=== PATIENT | male | born 1930 | race Caucasian/White ===

== ENCOUNTER 2017-10-13 14:07 | Inpatient (IN) ==
--- NOTE | 2017-10-13 14:37 | Emergency Department Note ---
ED Disposition Clinical Impression: Hypertension, Dementia, Abdominal pain, Hypertensive urgency, Bladder tumor, Inguinal hernia Disposition: Still a Patient Condition on Discharge: Fair Instructions: DI for Acute Abdomen - Critical Care Critical Care Time: No Attestation: On 10/13/17, the high probability of a clinically significant, sudden or life threatening deterioration of the following system(s) required my full and direct attention, intervention and personal management. The time I documented below is in addition to time spent performing reported procedures but includes the following listed in this critical care notation. Medical Decision Making - Josias Inquiry Pt receiving controlled substance: No Josias was queried for this patient: No Vital Signs: 10/13/17 14:11 10/13/17 16:08 10/13/17 16:25 Temperature 97.7 F Temperature Source Oral Pulse Rate [Right Brachial] 87 88 79 Respiratory Rate 18 18 Blood Pressure [Right Arm] 183/102 193/106 186/92 Blood Pressure Mean [Right Arm] 129 135 123 Blood Pressure Source [Right Arm] Automatic Cuff Automatic Cuff Automatic Cuff Blood Pressure Position [Right Arm] Sitting Sitting 02 Sat by Pulse Oximetry 98 99 Oxygen Delivery Method Room Air Room Air - Lab Data Lab Results 10/13/17 14:31: WBC 10.1, RBC 4.92, Hgb 15.0, Hct 47.1, MCV 95.7 H, MCH 30.5, MCHC 31.9, RDW 13.0, Plt Count 192, MPV 7.4, Neut % (Auto) 77.0, Lymph % (Auto) 13.2, [place] % (Auto) 7.0, Eos % (Auto) 2.3, Baso % (Auto) 0.6, Neut # (Auto) 7.8 , Lymph # (Auto) 1.3, [place] # (Auto) 0.7, Eos # (Auto) 0.2, Baso # (Auto) 0.1 10/13/17 14:31: Sodium 140, Potassium 4.3, Chloride 103, Carbon Dioxide 30, Anion Gap 11.3, BUN 18, Creatinine 1.15, Estimated Creat Clear 49, Estimated GFR 60, Est GFR ( Amer) 73, Glucose 111 H, Calcium 9.3, Total Bilirubin 0.5, AST 17, ALT 22, Alkaline Phosphatase 81, Total Protein 7.3, Albumin 3.8, Globulin 3.5 H, Albumin/Globulin Ratio 1.1 03/25/18 14:31: Total Creatine Kinase 84, CK-MB (CK-2) 1.2, CK-MB (CK-2) Rel Index 1.4, Troponin I 0.03 10/13/17 14:31: Amylase 70, Lipase 115 10/13/17 14:50: Lactic Acid 0.7 10/13/17 16:28: Troponin I 0.02 Result diagrams: 10/13/17 14:31 10/13/17 14:31 Orders (Tests/Meds): ED MEDICATIONS Discontinued Medications Generic Name Dose Route Start Last Admin Trade Name Freq PRN Reason Stop Dose Admin Diatrizoate Meglum/Diatrizoate Sod 30 ml 10/13/17 14:33 10/13/17 14:55 Gastrografin 66%-10% 30ml PO 10/13/17 14:34 30 ml ONCE ONE Administration Famotidine 20 mg 10/13/17 14:32 10/13/17 14:56 Pepcid 20mg/2ml Vial IV 10/13/17 14:33 20 mg ONCE ONE Administration Iopamidol 75 ml 10/13/17 16:03 10/13/17 16:04 [id number]; 75ml Vial IV 10/13/17 16:04 75 ml ONCE ONE Administration Labetalol HCl 5 mg 10/13/17 16:15 10/13/17 16:24 Labetalol Hcl 20mg/4ml Syringe IV 10/13/17 16:16 5 mg ONCE ONE Administration Metoprolol Tartrate 5 mg 10/13/17 15:29 10/13/17 15:33 Metoprolol Tartrate 5mg/5ml Vial IV 10/13/17 15:30 5 mg ONCE ONE Administration Morphine Sulfate 1 mg 10/13/17 17:04 10/13/17 17:07 Morphine 2mg/Ml Syringe IV 10/13/17 17:05 1 mg ONCE ONE Administration Morphine Sulfate 1 mg 10/13/17 17:45 10/13/17 17:46 Morphine 2mg/Ml Syringe IV 10/13/17 17:46 1 mg ONCE ONE Administration Sodium Chloride 10 ml 10/13/17 16:03 10/13/17 16:05 Rad-Saline Flush 10ml Syringe IV 10/13/17 16:04 10 ml ONCE ONE Administration ORDERS Category Date Time Status CT abdomen pelvis w con Stat Cat Scan 10/13/17 14:32 Taken XR chest AP Stat Exams 10/13/17 14:30 Taken - CT Data CT Scan: Abdomen, Pelvis Time Received: 18:[address] Reviewed: Yes: I have viewed the radiologist's interpretation Preliminary Findings: Abnormal Findings Narrative: Please see report. - ECG Data Tracing #1 Sinus rhythm 88/min first-degree AV block right bundle branch block left anterior fascicular block, LVH changes unchanged from June 2017 EKG. ECG initial impression date: 10/13/17 ECG initial impression time: 14:39 Medical Decision Narrative: His blood pressure continue to be elevated despite of using Lopressor and labetalol IV. His epigastric pain did not respond to Pepcid GI cocktail or morphine. I called Dr. Hernandez was carbon lamp cleaner for Dr. Linn and discussed the CT results with him for possible gallbladder disease, in addition to his urinary bladder abnormality. Dr. Hernandez agreed to admit him to start him on blood pressure medications pain control and obtain a ultrasound of the abdomen in the morning. The patient and his family were agreeable for admission. Abdominal Pain HPI - General Chief Complaint: Abdominal Pain Stated Complaint: stomach pain Time Seen by Provider: 10/13/17 14:20 Mode of Arrival: Ambulatory Limitations: No Limitations Description of Symptoms (Recalled from ER Triage Doc. by RN): pt states has had mid upper abd pain since the overnight; pt states he tried to eat a bowl of cereal, drank an julián 8 ; attempting to relieve discomfort. - History of Present Illness HPI narrative: 87 years old white male with no significant past medical history except for dementia, he had prior history of's hernia and prostate surgery. None recently. Today at 3 AM, he developed sudden onset of mild upper abdominal pain without nausea or vomiting. No hematemesis no coffee-ground emesis no bleeding per rectum no melanotic stool. He has no dysuria no hematuria. No weakness no dizziness no loss of consciousness. no Diaphoresis. The pain the pain remained the same and he decided to come to the ED for evaluation. After I finished the history and examination I asked him how does he rated his pain he said it is gone now. MD complaint: abdominal pain Onset (ago): hour(s) (11 hours prior to arrival to the ED.) Severity: mild Quality: other (he call it sorness. ) Radiation: none Migration to: no migration Relieving factors: nothing Associated symptoms: denies other symptoms - Related Data Allergies Allergy/AdvReac Type Severity Reaction Status Date / Time No Known Allergies Allergy Unverified 07/09/17 15:06 [facility] History I have reviewed the patient's past medical history: Yes (Hx was obtained from him and his granddaughter.) - Social History Educational Level: Completed High School Smoking Status: Unknown if ever smoked Alcohol Intake: never - Psychiatric History Expresses thoughts of harming self/others: None Suicide Plan Description: No Plan ROS Obtained: Yes All systems reviewed & no additional complaints Physical Exam - General General appearance: alert, in no apparent distress - Head Head exam: atraumatic, normocephalic, normal inspection, other (he wears a wig. ) - Eye Eye exam: Present: normal appearance, PERRL, EOMI. Absent: scleral icterus - ENT ENT exam: Present: normal exam, normal oropharynx, mucous membranes moist, TM's normal bilaterally, normal external ear exam, other (he is hard hearing. ) - Neck Neck exam: Present: normal inspection, full ROM, trachea midline. Absent: meningismus, lymphadenopathy - Chest Chest inspection: Present: normal inspection, symmetric chest wall rise. Absent : tenderness - Respiratory Respiratory exam: Present: normal lung sounds bilaterally. Absent: respiratory distress - Cardiovascular Cardiovascular exam: Present: regular rate, normal rhythm. Absent: JVD - Abdominal Exam Abdominal exam: Present: soft, normal bowel sounds, other (Minimal epigastric tenderness with no rebound or cross tenderness. ). Absent: distention, tenderness, guarding, rebound, rigidity, psoas sign, White's sign, tenderness at McBurney's Point Comment: No pulsating masses equal bilateral femoral pulse. - exam: Present: normal inspection, normal testicular lie, circumcised. Absent : testicular tenderness, urethral discharge - Extremities Exam Extremities exam: Present: normal inspection, full ROM, normal capillary refill. Absent: calf tenderness - Back Exam Back exam: Present: normal inspection. Absent: tenderness - Neurological Exam Neurological exam: Present: alert, oriented X3, CN II-XII intact, motor sensory deficit, reflexes normal - Psychiatric Psychiatric exam: Present: normal affect, normal mood - Skin Skin exam: Present: warm, dry, intact, normal color - Lymphatic Lymphatic Findings: no adenopathy
[2017-10-13 14:40] LABS: Basophils # 0.1 K/mm3 (0-0.2); Basophils % 0.6 % (0.1-2.0); Eosinophils # 0.2 K/mm3 (0.0-0.4); Eosinophils % 2.3 % (0.1-12.0); Hematocrit 47.1 % (42.0-52.0); Lymphocytes # 1.3 K/mm3 (0.7-4.5); Lymphocytes % 13.2 K/mm3 (10-50); Mean Corpuscular HGB Conc 31.9 g/dL (31.8-35.4); Mean Corpuscular Hemoglobin 30.5 pg (27.0-31.2); Mean Corpuscular Volume 95.7 fl (80-94); Mean Platelet Volume 7.4 fl (7.4-10.4); Monocytes # 0.7 K/mm3 (0.1-1.0); Neutrophils # 7.8 K/mm3 (1.8-7.8); Platelet Count 192 K/mm3 (142-424); Red Blood Count 4.92 M/mm3 (4.60-6.20); White Blood Count 10.1 K/mm3 (4.8-10.8)
[2017-10-13 14:52] LABS: Albumin Level 3.8 gm/dL (3.4-5.0); Albumin/Globulin Ratio 1.1 (1.1-1.8); Anion Gap 11.3 mEq/L (5-15); Bilirubin,Total 0.5 mg/dL (0.2-1.0); Calcium 9.3 mg/dL (8.5-10.1); Globulin 3.5 gm/dl (1.3-3.2); Potassium 4.3 mmoL/L (3.5-5.1); Total Protein,Serum 7.3 gm/dL (6.4-8.2)
[2017-10-13 14:57] LABS: Amylase 70 U/L (25-125); Lipase 115 u/L (73-393)
[2017-10-14 07:01] LABS: Basophils % 0.2 % (0.1-2.0); Eosinophils # 0.1 K/mm3 (0.0-0.4); Eosinophils % 0.8 % (0.1-12.0); Hematocrit 40.3 % (42.0-52.0); Mean Corpuscular HGB Conc 33.4 g/dL (31.8-35.4); Mean Corpuscular Hemoglobin 30.6 pg (27.0-31.2); Mean Corpuscular Volume 91.8 fl (80-94); Mean Platelet Volume 7.5 fl (7.4-10.4); Monocytes # 1.1 K/mm3 (0.1-1.0); Monocytes % 7.8 % (1.7-9.3); Neutrophils # 11.9 K/mm3 (1.8-7.8); Neutrophils % 84.2 % (37.0-80.0); Platelet Count 188 K/mm3 (142-424); Red Blood Count 4.39 M/mm3 (4.60-6.20); Red Cell Distribution Width 12.9 % (11.5-17.5); White Blood Count 14.1 K/mm3 (4.8-10.8)
[2017-10-14 07:02] LABS: Anion Gap 9.3 mEq/L (5-15); Potassium 4.3 mmoL/L (3.5-5.1)
[2017-10-14 07:16] LABS: Hemoglobin 13.4 g/dL (14.1-18.0)
--- NOTE | 2017-10-14 07:28 | Pharmacy Consult Notes ---
[facility] Pharmacy VTE Monitoring - Patient Demographics Admission date: 10/13/17 Report Date: 10/14/17 Time: 07:28 Allergies/Adverse Reactions: Patient Allergies No Known Allergies Allergy (Unverified 07/09/17 15:06) Height: 1.8 m Weight: 77.366 kg Patient Problems: Current Active Problems Hypertension (Acute) Dementia (Acute) Abdominal pain (Acute) Hypertensive urgency (Acute) Bladder tumor (Acute) Inguinal hernia (Acute) - VTE Risk Labs: VTE Related Lab Results Hgb 13.4 g/dL (14.1-18.0) L D 10/14/17 06:30 Hct 40.3 % (42.0-52.0) L 10/14/17 06:30 Plt Count 188 K/mm3 (142-424) 10/14/17 06:30 BUN 20 mg/dL (7-18) H 10/14/17 06:30 Creatinine 1.11 mg/dL (0.70-1.30) 10/14/17 06:30 Estimated Creat Clear 52 mL/min (0-300) 10/14/17 06:30 VTE Score: 3 VTE Risk Level: Low Risk - Prophylaxis VTE Prophylaxis Ordered?: Yes Types of VTE Prophylaxis: TEDS Knee High Location of Applied Device: Bilateral Lower Extremeties - VTE Diagnosis Confirmed Treatment or plan recommended: Continue Current Treatment
--- NOTE | 2017-10-14 08:15 | History & Physical Report ---
*Admission Date: 10/13/17 *Chief complaint: Abdominal pain *History of present illness: 87-year-old white male who enjoys fairly good health except for memory loss issues who had a good morning yesterday morning and went to religious services but then afterwards began to have some fairly significant upper quadrant bilateral/ epigastric pain. This was extremely painful and he came to the emergency department. Initial labs are unremarkable, although urinalysis has not been done, but CT scan showed evidence of distended gallbladder, and patient was kept overnight for observation This morning his belly feels better, and he feels hungry. [facility] History Other Medical History: Reports: Arthritis, Thyroid Disease (Hypothyroidism) Comment: Patient has mild dementia. History of BPH with history of prostate cancer - *Social History Educational Level: Completed High School Smoking Status: Unknown if ever smoked Alcohol Intake: never - Psychiatric History Expresses thoughts of harming self/others: None Suicide Plan Description: No Plan Review of Systems - Review of Systems Review of systems:: unable to obtain, other, pertinent systems reviewed and negative unless documented below - Constitutional Denies anorexia, Denies body ache(s), Denies chills - ENT Denies abnormal hearing - *Gastrointestinal Reports abdominal pain, Reports bloating, Denies belching, Denies change in bowel habits, Denies change in stools, Denies coffee ground vomit, Denies constipation, Denies cramping - *Genitourinary Denies difficulty urinating - *Musculoskeletal Denies abnormal walking - *Neurologic Denies abnormal walking Meds Home Medications Medication Instructions Recorded Confirmed Type Famotidine [Famotidine] 40 mg PO DAILY 10/13/17 10/13/17 History Levothyroxine Sodium 25 mg PO DAILY 10/13/17 10/13/17 History [Levothyroxine 25mcg (0.025mg) Tab] Pravastatin Sodium [Pravachol] 40 mg PO DAILY 10/13/17 10/13/17 History Tamsulosin HCl [Flomax] 0.4 mg PO DAILY 10/13/17 10/13/17 History Trazodone HCl 50 mg PO HS 10/13/17 10/13/17 History Allergies Allergy/AdvReac Type Severity Reaction Status Date / Time No Known Allergies Allergy Unverified 07/09/17 15:06 Exam Vital signs and Labs for Last 24 Hours: Temp Pulse Resp BP Pulse Ox 99.2 F 84 20 140/74 94 L 10/14/17 08:00 10/14/17 08:00 10/14/17 08:00 10/14/17 08:00 10/14/17 08:00 Laboratory Results - last 24 hr 10/14/17 06:30: WBC 14.1 H D, RBC 4.39 L, Hgb 13.4 L D, Hct 40.3 L, MCV 91.8, MCH 30.6, MCHC 33.4, RDW 12.9, Plt Count 188, MPV 7.5, Neut % (Auto) 84.2 H, Lymph % (Auto) 7.0 L, [place] % (Auto) 7.8, Eos % (Auto) 0.8, Baso % (Auto) 0.2, Neut # (Auto) 11.9 H, Lymph # (Auto) 1.0, [place] # (Auto) 1.1 H, Eos # (Auto) 0.1 , Baso # (Auto) 0.0 10/14/17 06:30: Sodium 138, Potassium 4.3, Chloride 104, Carbon Dioxide 29, Anion Gap 9.3, BUN 20 H, Creatinine 1.11, Estimated Creat Clear 52, Estimated GFR 63, Est GFR ( Amer) 76, Glucose 112 H I & O for Last 24 hours: Intake & Output 10/11/17 10/12/17 10/13/17 10/14/17 11:59 11:59 11:59 11:59 Intake Total 972 / 972 Balance 972 / 972 Weight 170 lb 9 oz Narrative: Patient is pleasant. Alert. Oriented 2. Lungs in the anterior pruitt are clear, abdomen is soft, minimal epigastric tenderness but no rebound or guarding , no jaundice, no scleral icterus. Heart rate regular. Able to move all extremities, no edema. H&P: Result - Labs Labs: Short CBC 10/14/17 Range/Units 06:30 WBC 14.1 H D (4.8-10.8) K/mm3 Hgb 13.4 L D (14.1-18.0) g/dL Hct 40.3 L (42.0-52.0) % Plt Count 188 (142-424) K/mm3 BMP 10/14/17 06:30 Sodium 138 Potassium 4.3 Chloride 104 Carbon Dioxide 29 BUN 20 H Creatinine 1.11 Glucose 112 H Assessment and Plan (1) Abdominal pain Current visit: Yes Status: Acute Category: Medical Code(s): R10.9 - Unspecified abdominal pain Given constellation of distended bladder on CT scan, elevated white blood cell count today and increasing temperature at 99.2 this morning, I will initiate Unasyn therapy, blood cultures and urine cultures, await gallbladder ultrasound. Urinary anomalies noted on CT scan but this seems to be residual from his prostate surgery and radiation seed implants.
[2017-10-14 11:37] LABS: Microscopic, Urine URINE MICROSCOPIC (MICROSCOPIC)
[2017-10-14 11:40] LABS: Appearance,Urine SL CLOUDY (Clear); Bilirubin,Urine Negative (Negative); Blood, Urine TRACE-I (Negative); Color,Urine YELLOW (Yellow); Glucose,Urine (UA) Negative (Negative); Ketones,Urine Negative (Negative); Leukocyte Esterase,Urine Negative (Negative); PH,Urine 7.5 (5.0-8.5); Protein,Urine Negative (Negative); Urobilinogen,Urine 0.2 EU/dl (0.2)
[2017-10-14 11:47] LABS: Bacteria,Urine 2+ /lpf; Squamous Epithelial Cell,Urine Occasional #/hpf (0-5); WBC,Urine Occasional #/hpf (0-3)
--- NOTE | 2017-10-14 12:53 | Consult Report ---
*Admission Date: 10/13/17 *Chief complaint: Abdominal pain *History of present illness: 87-year-old white male who enjoys fairly good health except for memory loss issues who had a good morning yesterday morning and went to [place] services but then afterwards began to have some fairly significant upper quadrant bilateral/ epigastric pain. This was extremely painful and he came to the emergency department. Initial labs are unremarkable, although urinalysis has not been done, but CT scan showed evidence of distended gallbladder, and patient was kept overnight for observation Patient was found to have a progressive leukocytosis with left shift this morning. He therefore underwent gallbladder ultrasound. This reveals findings of distended thickened gallbladder with gallstones. Surgical consultation was obtained. Patient was started on Unasyn. Review of Systems - Review of Systems Review of systems:: pertinent systems reviewed and negative unless documented below - *Neurologic Denies abnormal walking, Denies abnormal hearing [facility] History Other Medical History: Reports: Arthritis, Thyroid Disease (Hypothyroidism) - *Social History Educational Level: Completed High School Smoking Status: Unknown if ever smoked Alcohol Intake: never - Psychiatric History Expresses thoughts of harming self/others: None Suicide Plan Description: No Plan Meds Home Medications Medication Instructions Recorded Confirmed Type Famotidine [Famotidine] 40 mg PO DAILY 10/13/17 10/13/17 History Levothyroxine Sodium 25 mg PO DAILY 10/13/17 10/13/17 History [Levothyroxine 25mcg (0.025mg) Tab] Pravastatin Sodium [Pravachol] 40 mg PO DAILY 10/13/17 10/13/17 History Tamsulosin HCl [Flomax] 0.4 mg PO DAILY 10/13/17 10/13/17 History Trazodone HCl 50 mg PO HS 10/13/17 10/13/17 History Allergies Allergy/AdvReac Type Severity Reaction Status Date / Time No Known Allergies Allergy Unverified 07/09/17 15:06 Exam Vital signs and Labs for Last 24 Hours: Temp Pulse Resp BP Pulse Ox 99.2 F 84 20 140/74 94 L 10/14/17 08:00 10/14/17 08:00 10/14/17 08:00 10/14/17 08:00 10/14/17 08:00 Laboratory Results - last 24 hr 10/14/17 06:30: WBC 14.1 H D, RBC 4.39 L, Hgb 13.4 L D, Hct 40.3 L, MCV 91.8, MCH 30.6, MCHC 33.4, RDW 12.9, Plt Count 188, MPV 7.5, Neut % (Auto) 84.2 H, Lymph % (Auto) 7.0 L, [place] % (Auto) 7.8, Eos % (Auto) 0.8, Baso % (Auto) 0.2, Neut # (Auto) 11.9 H, Lymph # (Auto) 1.0, [place] # (Auto) 1.1 H, Eos # (Auto) 0.1 , Baso # (Auto) 0.0 10/14/17 06:30: Sodium 138, Potassium 4.3, Chloride 104, Carbon Dioxide 29, Anion Gap 9.3, BUN 20 H, Creatinine 1.11, Estimated Creat Clear 52, Estimated GFR 63, Est GFR ( Amer) 76, Glucose 112 H 10/14/17 11:15: Urine Color Yellow, Urine Appearance Sl cloudy, Urine pH 7.5, Ur Specific [place] 1.010, Urine Protein Negative, Urine Glucose (UA) Negative, Urine Ketones Negative, Urine Blood Trace-i, Urine Nitrate Negative, Urine Bilirubin Negative, Urine Urobilinogen 0.2, Ur Leukocyte Esterase Negative, Urine WBC Occasional, Ur Squamous Epith Cells Occasional, Urine Bacteria 2+ I & O for Last 24 hours: Intake & Output 10/12/17 10/13/17 10/14/17 10/15/17 11:59 11:59 11:59 11:59 Intake Total 972 / 972 Balance 972 / 972 Weight 170 lb 9 oz - Constitutional no acute distress - *Routine Respiratory Exam Present: CTA bilaterally - *Routine Cardiovascular Exam Present: RRR - *Routine Abdominal Exam Present: soft. Absent: tenderness Results - Labs 10/14/17 06:30 10/14/17 06:30 Laboratory Results - last 24 hr 10/14/17 06:30: WBC 14.1 H D, RBC 4.39 L, Hgb 13.4 L D, Hct 40.3 L, MCV 91.8, MCH 30.6, MCHC 33.4, RDW 12.9, Plt Count 188, MPV 7.5, Neut % (Auto) 84.2 H, Lymph % (Auto) 7.0 L, [place] % (Auto) 7.8, Eos % (Auto) 0.8, Baso % (Auto) 0.2, Neut # (Auto) 11.9 H, Lymph # (Auto) 1.0, [place] # (Auto) 1.1 H, Eos # (Auto) 0.1 , Baso # (Auto) 0.0 10/14/17 06:30: Sodium 138, Potassium 4.3, Chloride 104, Carbon Dioxide 29, Anion Gap 9.3, BUN 20 H, Creatinine 1.11, Estimated Creat Clear 52, Estimated GFR 63, Est GFR ( Amer) 76, Glucose 112 H 10/14/17 11:15: Urine Color Yellow, Urine Appearance Sl cloudy, Urine pH 7.5, Ur Specific [place] 1.010, Urine Protein Negative, Urine Glucose (UA) Negative, Urine Ketones Negative, Urine Blood Trace-i, Urine Nitrate Negative, Urine Bilirubin Negative, Urine Urobilinogen 0.2, Ur Leukocyte Esterase Negative, Urine WBC Occasional, Ur Squamous Epith Cells Occasional, Urine Bacteria 2+ Assessment and Plan (1) Abdominal pain Current visit: Yes Status: Acute Category: Medical Code(s): R10.9 - Unspecified abdominal pain - Assessment and plan all Dx Assessment and Plan for all problems:: Patient has a clinical presentation and sonographic evidence consistent with cholecystitis. I had a long discussion with the patient and his family members. At this time plan will be for tentative cholecystectomy, laparoscopic possible open, tomorrow. In the interim continue antibiotics. He may have clear liquids this afternoon.
[2017-10-15 06:45] LABS: Basophils % 0.1 % (0.1-2.0); Eosinophils # 0.2 K/mm3 (0.0-0.4); Eosinophils % 0.9 % (0.1-12.0); Hemoglobin 14.1 g/dL (14.1-18.0); Lymphocytes # 0.8 K/mm3 (0.7-4.5); Lymphocytes % 4.1 K/mm3 (10-50); Mean Corpuscular HGB Conc 33.7 g/dL (31.8-35.4); Mean Corpuscular Hemoglobin 31.1 pg (27.0-31.2); Mean Corpuscular Volume 92.3 fl (80-94); Mean Platelet Volume 7.9 fl (7.4-10.4); Monocytes # 1.5 K/mm3 (0.1-1.0); Monocytes % 7.2 % (1.7-9.3); Neutrophils # 17.6 K/mm3 (1.8-7.8); Neutrophils % 87.7 % (37.0-80.0); Platelet Count 181 K/mm3 (142-424); Red Blood Count 4.55 M/mm3 (4.60-6.20); Red Cell Distribution Width 12.9 % (11.5-17.5); White Blood Count 20.1 K/mm3 (4.8-10.8)
--- NOTE | 2017-10-15 07:12 | Progress Note ---
Subjective Narrative: Patient states he feels "better". Increased WBC today. Exam Vital signs and Labs for Last 24 Hours: Temp Pulse Resp BP Pulse Ox 97.9 F 96 H 20 133/74 93 L 10/15/17 04:00 10/15/17 04:00 10/15/17 04:00 10/15/17 04:00 10/15/17 04:00 Laboratory Results - last 24 hr 10/15/17 06:26: WBC 20.1 H* D, RBC 4.55 L, Hgb 14.1, Hct 42.0, MCV 92.3, MCH 31.1, MCHC 33.7, RDW 12.9, Plt Count 181, MPV 7.9, Neut % (Auto) 87.7 H, Lymph % (Auto) 4.1 L, [place] % (Auto) 7.2, Eos % (Auto) 0.9, Baso % (Auto) 0.1, Neut # ( Auto) 17.6 H, Lymph # (Auto) 0.8, [place] # (Auto) 1.5 H, Eos # (Auto) 0.2, Baso # (Auto) 0.0 I & O for Last 24 hours: Intake & Output 10/12/17 10/13/17 10/14/17 10/15/17 11:59 11:59 11:59 11:59 Intake Total 2085 / 2085 Output Total 900 / 900 Balance 1185 / 1185 Weight 170 lb 9.005 oz - *Routine Abdominal Exam Present: tenderness Comments: Abdomen is mildly distended. Increased tenderness in epigastrium and RUQ. Progress Note: A&P (1) Abdominal pain Status: Acute Assessment and plan: Possible progressive acute cholecystitis based on increasing WBC and tenderness. Check LFTs to evaluate for choledocholithiasis and pancreatic enzymes. Tentatively plan cholecystectomy later. Current Visit: Yes
[2017-10-15 07:28] LABS: Anion Gap 12.9 mEq/L (5-15); Potassium 3.9 mmoL/L (3.5-5.1)
[2017-10-15 07:29] LABS: Albumin Level 3.2 gm/dL (3.4-5.0); Albumin/Globulin Ratio 1.2 (1.1-1.8); Bilirubin,Total 1.2 mg/dL (0.2-1.0); Globulin 2.7 gm/dl (1.3-3.2); Total Protein,Serum 5.9 gm/dL (6.4-8.2)
[2017-10-15 07:31] LABS: Amylase 29 U/L (25-125)
[2017-10-15 07:52] LABS: Lipase 39 u/L (73-393)
[2017-10-15 08:35] LABS: Lymphocytes % 3 % (10-50); Monocytes % 6 % (2-9); Neutrophils % 91 % (42-76); Total Cells Counted 100
--- NOTE | 2017-10-15 08:51 | Progress Note ---
Internal Medicine - PN: Subj *Date: 10/15/17 *Time: 07:40 Interval history: Patient reports some mild improvement in epigastric pain this morning. Denies nausea, vomiting and diarrhea Alert and oriented x3, with some intermittent confusion. Rate and rhythm regular. No LE edema. Lung sounds clear and equal. Abdomen soft and nontender , ruq/epigastric tenderness, no guarding or rebound Exam Vital signs and Labs for Last 24 Hours: Temp Pulse Resp BP Pulse Ox 99.4 F 92 H 20 179/65 93 L 10/15/17 08:00 10/15/17 08:00 10/15/17 08:00 10/15/17 08:00 10/15/17 08:00 Laboratory Results - last 24 hr 10/15/17 06:26: WBC 20.1 H* D, RBC 4.55 L, Hgb 14.1, Hct 42.0, MCV 92.3, MCH 31.1, MCHC 33.7, RDW 12.9, Plt Count 181, MPV 7.9, Neut % (Auto) 87.7 H, Lymph % (Auto) 4.1 L, [place] % (Auto) 7.2, Eos % (Auto) 0.9, Baso % (Auto) 0.1, Neut # ( Auto) 17.6 H, Lymph # (Auto) 0.8, [place] # (Auto) 1.5 H, Eos # (Auto) 0.2, Baso # (Auto) 0.0, Total Counted 100, Neutrophils % (Manual) 91 H, Lymphocytes % ( Manual) 3 L, Monocytes % (Manual) 6, Platelet Estimate Normal, RBC Morphology Not Reportable 10/15/17 06:26: Sodium 135 L, Potassium 3.9, Chloride 103, Carbon Dioxide 23 D , Anion Gap 12.9, BUN 17, Creatinine 1.03, Estimated Creat Clear 56, Estimated GFR 68, Est GFR ( Amer) 83, Glucose 122 H, Calcium 8.0 L D, Total Bilirubin 1.2 H, AST 18, ALT 17, Alkaline Phosphatase 63, Total Protein 5.9 L, Albumin 3.2 L, Globulin 2.7, Albumin/Globulin Ratio 1.2 10/15/17 06:26: Amylase 29, Lipase 39 L I & O for Last 24 hours: Intake & Output 03/2410/13/17 10/14/17 10/15/17 11:59 11:59 11:59 11:59 Intake Total 5 / 208 Output Total 900 / 900 Balance 1185 / 1185 Weight 170 lb 9.005 oz Assessment and Plan (1) Abdominal pain Current visit: Yes Status: Acute Category: Medical Code(s): R10.9 - Unspecified abdominal pain - Assessment and plan all Dx Assessment and Plan for all problems:: WBC count has increased overnight. Continue unasyn. LFT's and pancreatitic enzymes are pending. NPO for cholecystectomy later today.
--- NOTE | 2017-10-15 14:37 | Progress Note ---
[facility] Anesthesia Checklist - Patient Identification Patient Identification: Arm Band - Structural Data Admitted From: Inpatient Planned Operative Procedure/s: lap salvador Consent for Planned Operative Procedure(s) Verified: Yes Verified Documents: Surgical Consent, History and Physical - NPO Status Verified Time NPO: 00:00 - Additional verifications Anesthesia Reactions: No - Airway Assessment C-Spine Mobility Assessed: Yes (mp2) TMJ Mobility Assessed: Yes Dentition: Good Dentition - Neurological Assessment Level of Consciousness: Awake, Alert - Anesthesia Plan Anesthesia Risk discussed: Yes Anesthesia Plan: Verified ASA Class: II Anesthesia Type: General [facility] Anesthesia HX I have reviewed the patient's past medical history: Yes Medical History: Reports:: Hyperlipidemia Other Medical History: Reports: Arthritis, Thyroid Disease (Hypothyroidism), Other (mild dementia) Other Surgeries: Yes: Hernia Repair
--- NOTE | 2017-10-15 16:57 | Operative Note ---
Date of procedure: 10/15/17 Pre-op Diagnosis:: Acute cholecystitis Post-op Diagnosis:: Same Procedure performed:: Laparoscopic cholecystectomy Surgeon:: Abhi Carmichael MD Radiological Equipment Specialist(s):: Alix [place] SORT LINE:: Hansel Elizondo Anesthesia: GETA Estimated blood loss (mL): 50 Clinical Note:: Patient is an 87-year-old white was admitted with findings consistent with acute cholecystitis. Surgical consultation was obtained. Patient has actually stated that he was feeling better but had a mild to moderate leukocytosis. He underwent gallbladder ultrasound which was markedly abnormal. Surgical consultation was obtained. Patient started on intravenous antibiotics. Plan was made for cholecystectomy. The following morning on 10/15/17 he had progressive leukocytosis to 20,000. He had more tenderness. Plan was made for cholecystectomy that afternoon. Operative findings:: Patient had a severe acute cholecystitis with established focal peritonitis and fibrinopurulent exudate around the gallbladder. Gallbladder was markedly tense and distended and essentially ruptured with minimal manipulation intraoperatively. Operative note:: Patient was taken to the operating room. He was given preoperative intravenous antibiotics. In the operating room he was placed in a supine position. General anesthesia was induced. Abdomen was prepped and draped in the standard surgical fashion. Subumbilical skin incision was made and while performing abdominal wall lift Veress needle was inserted. CO2 pneumoperitoneum was achieved 15 mmHg. Patient was positioned in reverse Trendelenburg and left side down. A couple of 5 mm trochars were inserted in the right upper abdomen. 10 mm trocar was inserted in the epigastrium. There was fibrinopurulent exudate around the obvious severely acutely inflamed gallbladder. Using the suction tip the gallbladder was elevated. At this time the gallbladder easily ruptured and there was a large amount of mucus bile consistent with a hydropic gallbladder with some purulent bile. This was immediately suctioned gallbladder was decompressed. Gallbladder was retracted anteriorly and superiorly over the dome of the liver. Acute inflammatory fibrinopurulent adhesions to the neck of the gallbladder were taken down using blunt dissection and the infundibulum/Gupta's pouch of the gallbladder was retracted anterior laterally. Blunt dissection was carried out at the neck of the gallbladder. This was rather difficult. Cystic duct appeared rather prominent. Cystic artery was somewhat posterior. Cystic duct was then multiply clipped and then divided. Cystic artery was carefully coagulated with Jose ultrasonic harmonic dirk and divided. The gallbladder was dissected free from the liver in a retrograde fashion using Jose ultrasonic harmonic dirk. Please note that there was some parenchymal tearing of the liver due to the severe inflammatory response. Electrocautery was also used for dissection due to the severe inflammatory response. Once the gallbladder was dissected free in its entirety from the gallbladder fossa was placed within an Endo Catch retrieval device and removed from the peritoneal cavity via the umbilical trocar site which required some extension of the fascia and skin incisions for delivery. The gallbladder fossa and perihepatic space were then thoroughly irrigated and aspirated until clear with several liters of warm saline. A 0 PDS Endoloop was placed on the cystic duct alondra for assurance. [place] use of electrocautery was used on the gallbladder fossa for good hemostasis. A 10 mm KELLY drain was placed into the peritoneal cavity to exit at the right lateral right upper quadrant trocar site. It was secured at the skin with a 2-0 nylon horizontal mattress suture. Trochars were then removed as CO2 pneumoperitoneum was evacuated. Fascia at the umbilicus was closed with numerous interrupted 0 Ethibond sutures. Local anesthetic was infiltrated. Skin incisions were closed with 4-0 Monocryl in subcuticular fashion. Steri-Strips and clean dry sterile dressings were applied. Condition: stable Disposition: PACU Specimens:: Gallbladder Complications:: None immediate
--- NOTE | 2017-10-15 17:06 | Progress Note ---
[facility] Anesthesia Record Part I Intake, IV Amount: 1,400 Estimated blood loss (mL): 50 Urine output (mL): 0 Blood Pressure: 152/77 SaO2: 92 Pulse Rate: 86 Respiratory Rate: 14 Temperature: 98.9 F Patient is:: Awake, Drowsy, Stable Stable to PACU at:: 17:05
--- NOTE | 2017-10-15 17:07 | Progress Note ---
[facility] Anesthesia Record Part II Discharge Time: 17:35 Destination: floor PACU nurse assessment reviewed?: Yes Patient Condition:: Good Anesthesia Complications:: None
[2017-10-16 06:49] LABS: Eosinophils % 0.1 % (0.1-12.0); Hematocrit 42.5 % (42.0-52.0); Hemoglobin 14.3 g/dL (14.1-18.0); Lymphocytes # 0.6 K/mm3 (0.7-4.5); Lymphocytes % 3.4 K/mm3 (10-50); Mean Corpuscular HGB Conc 33.6 g/dL (31.8-35.4); Mean Corpuscular Hemoglobin 30.8 pg (27.0-31.2); Mean Corpuscular Volume 91.7 fl (80-94); Mean Platelet Volume 8.3 fl (7.4-10.4); Monocytes % 5.4 % (1.7-9.3); Neutrophils # 16.9 K/mm3 (1.8-7.8); Platelet Count 199 K/mm3 (142-424); Red Blood Count 4.64 M/mm3 (4.60-6.20); White Blood Count 18.5 K/mm3 (4.8-10.8)
[2017-10-16 07:08] LABS: Albumin Level 2.9 gm/dL (3.4-5.0); Albumin/Globulin Ratio 0.8 (1.1-1.8); Anion Gap 11.7 mEq/L (5-15); Bilirubin,Total 0.8 mg/dL (0.2-1.0); Calcium 7.9 mg/dL (8.5-10.1); Globulin 3.6 gm/dl (1.3-3.2); Potassium 3.7 mmoL/L (3.5-5.1); Total Protein,Serum 6.5 gm/dL (6.4-8.2)
--- NOTE | 2017-10-16 07:09 | Progress Note ---
Subjective Patient reports: no new complaints, feels better Exam Vital signs and Labs for Last 24 Hours: Temp Pulse Resp BP Pulse Ox 98.4 F 98 H 20 148/83 92 L 10/16/17 04:00 10/16/17 04:00 10/16/17 04:00 10/16/17 04:00 10/16/17 04:00 Laboratory Results - last 24 hr 10/15/17 06:26: Total Counted 100, Neutrophils % (Manual) 91 H, Lymphocytes % ( Manual) 3 L, Monocytes % (Manual) 6, Platelet Estimate Normal, RBC Morphology Not Reportable 10/15/17 06:26: Sodium 135 L, Potassium 3.9, Chloride 103, Carbon Dioxide 23 D , Anion Gap 12.9, BUN 17, Creatinine 1.03, Estimated Creat Clear 56, Estimated GFR 68, Est GFR ( Amer) 83, Glucose 122 H, Calcium 8.0 L D, Total Bilirubin 1.2 H, AST 18, ALT 17, Alkaline Phosphatase 63, Total Protein 5.9 L, Albumin 3.2 L, Globulin 2.7, Albumin/Globulin Ratio 1.2 10/15/17 06:26: Amylase 29, Lipase 39 L 10/16/17 06:30: WBC 18.5 H, RBC 4.64, Hgb 14.3, Hct 42.5, MCV 91.7, MCH 30.8, MCHC 33.6, RDW 13.0, Plt Count 199, MPV 8.3, Neut % (Auto) 91.0 H, Lymph % (Auto ) 3.4 L, [place] % (Auto) 5.4, Eos % (Auto) 0.1, Baso % (Auto) 0.0 L, Neut # (Auto ) 16.9 H, Lymph # (Auto) 0.6 L, [place] # (Auto) 1.0, Eos # (Auto) 0.0, Baso # ( Auto) 0.0 I & O for Last 24 hours: Intake & Output 10/13/17 10/14/17 10/15/17 10/16/17 11:59 11:59 11:59 11:59 Intake Total 2085 / 2085 1788 / 1788 Output Total 900 / 900 690 / 690 Balance 1185 / 1185 1098 / 1098 Weight 170 lb 9.005 oz - *Routine Abdominal Exam Present: soft, drain Progress Note: A&P (1) Abdominal pain Status: Acute Current Visit: Yes Assessment and Plan for All Diagnoses:: Continue antibiotics. Advance to full liquid diet.
--- NOTE | 2017-10-16 07:14 | Progress Note ---
Internal Medicine - PN: Subj *Date: 10/16/17 *Time: 07:12 Interval history: Patient is postoperative day 1 from cholecystectomy yesterday. Significant debris and necrotic gallbladder noted per surgery. He feels without complaints this morning although is a little sedated, patient required some Ativan yesterday for significant agitation and attempting to pull out his KELLY drain. Otherwise he has no complaints. Nursing staff reports that he was comfortable through the night. Exam Vital signs and Labs for Last 24 Hours: Temp Pulse Resp BP Pulse Ox 98.4 F 98 H 20 148/83 92 L 10/16/17 04:00 10/16/17 04:00 10/16/17 04:00 10/16/17 04:00 10/16/17 04:00 Laboratory Results - last 24 hr 10/15/17 06:26: Total Counted 100, Neutrophils % (Manual) 91 H, Lymphocytes % ( Manual) 3 L, Monocytes % (Manual) 6, Platelet Estimate Normal, RBC Morphology Not Reportable 10/15/17 06:26: Sodium 135 L, Potassium 3.9, Chloride 103, Carbon Dioxide 23 D , Anion Gap 12.9, BUN 17, Creatinine 1.03, Estimated Creat Clear 56, Estimated GFR 68, Est GFR ( Amer) 83, Glucose 122 H, Calcium 8.0 L D, Total Bilirubin 1.2 H, AST 18, ALT 17, Alkaline Phosphatase 63, Total Protein 5.9 L, Albumin 3.2 L, Globulin 2.7, Albumin/Globulin Ratio 1.2 10/15/17 06:26: Amylase 29, Lipase 39 L 10/16/17 06:30: WBC 18.5 H, RBC 4.64, Hgb 14.3, Hct 42.5, MCV 91.7, MCH 30.8, MCHC 33.6, RDW 13.0, Plt Count 199, MPV 8.3, Neut % (Auto) 91.0 H, Lymph % (Auto ) 3.4 L, [place] % (Auto) 5.4, Eos % (Auto) 0.1, Baso % (Auto) 0.0 L, Neut # (Auto ) 16.9 H, Lymph # (Auto) 0.6 L, [place] # (Auto) 1.0, Eos # (Auto) 0.0, Baso # ( Auto) 0.0 I & O for Last 24 hours: Intake & Output 10/13/17 10/14/17 10/15/17 10/16/17 11:59 11:59 11:59 11:59 Intake Total 2085 / 2085 1788 / 1788 Output Total 900 / 900 690 / 690 Balance 1185 / 1185 1098 / 1098 Weight 170 lb 9.005 oz Narrative: Patient is somewhat sedated but does ask "what was my surgery like." Anterior lungs are clear, heart rate regular, abdomen is soft, KELLY drain in place. Surgical site looks good. Assessment and Plan (1) Abdominal pain Current visit: Yes Status: Acute Category: Medical Code(s): R10.9 - Unspecified abdominal pain (2) Acute cholecystitis Current visit: Yes Status: Acute Category: Medical Code(s): K81.0 - Acute cholecystitis (3) Status post cholecystectomy Current visit: Yes Status: Acute Category: Surgical Code(s): Z90.49 - Acquired absence of other specified parts of digestive tract - Assessment and plan all Dx Assessment and Plan for all problems:: postcholecystectomy, doing well, follow with surgery. Check blood counts and electrolytes tomorrow. Continue KELLY drain.
[2017-10-16 11:00] LABS: Lymphocytes % 4 % (10-50); Monocytes % 5 % (2-9); Neutrophils % 90 % (42-76); RBC Morphology Normal; Total Cells Counted 100
[2017-10-17 07:08] LABS: Basophils % 0.2 % (0.1-2.0); Eosinophils # 0.1 K/mm3 (0.0-0.4); Eosinophils % 0.4 % (0.1-12.0); Hematocrit 41.2 % (42.0-52.0); Hemoglobin 13.5 g/dL (14.1-18.0); Lymphocytes # 1.1 K/mm3 (0.7-4.5); Lymphocytes % 6.8 K/mm3 (10-50); Mean Corpuscular HGB Conc 32.8 g/dL (31.8-35.4); Mean Corpuscular Hemoglobin 30.8 pg (27.0-31.2); Mean Corpuscular Volume 93.9 fl (80-94); Mean Platelet Volume 8.3 fl (7.4-10.4); Monocytes # 0.9 K/mm3 (0.1-1.0); Monocytes % 5.9 % (1.7-9.3); Neutrophils # 13.3 K/mm3 (1.8-7.8); Neutrophils % 86.7 % (37.0-80.0); Platelet Count 215 K/mm3 (142-424); Red Blood Count 4.39 M/mm3 (4.60-6.20); Red Cell Distribution Width 13.1 % (11.5-17.5); White Blood Count 15.4 K/mm3 (4.8-10.8)
[2017-10-17 07:23] LABS: Albumin Level 2.3 gm/dL (3.4-5.0); Albumin/Globulin Ratio 0.7 (1.1-1.8); Anion Gap 10.8 mEq/L (5-15); Bilirubin,Total 0.6 mg/dL (0.2-1.0); Calcium 7.6 mg/dL (8.5-10.1); Globulin 3.2 gm/dl (1.3-3.2); Potassium 3.8 mmoL/L (3.5-5.1); Total Protein,Serum 5.5 gm/dL (6.4-8.2)
--- NOTE | 2017-10-17 07:32 | Progress Note ---
Subjective Narrative: Patient resting comfortably. Exam Vital signs and Labs for Last 24 Hours: Temp Pulse Resp BP Pulse Ox 99.0 F 95 H 24 105/66 92 L 10/17/17 04:00 10/17/17 04:00 10/17/17 04:00 10/17/17 04:00 10/17/17 04:00 Laboratory Results - last 24 hr 10/16/17 06:30: Total Counted 100, Neutrophils % (Manual) 90 H, Band Neutrophils % 1.0, Lymphocytes % (Manual) 4 L, Monocytes % (Manual) 5, Platelet Estimate Normal, RBC Morphology Normal 10/16/17 06:30: Sodium 134 L, Potassium 3.7, Chloride 101, Carbon Dioxide 25, Anion Gap 11.7, BUN 26 H D, Creatinine 1.23, Estimated Creat Clear 47, Estimated GFR 56 L, Est GFR ( Amer) 68, Glucose 157 H, Calcium 7.9 L, Total Bilirubin 0.8, AST 36 D, ALT 45 D, Alkaline Phosphatase 62, Total Protein 6.5, Albumin 2.9 L, Globulin 3.6 H, Albumin/Globulin Ratio 0.8 L 10/17/17 06:34: WBC 15.4 H, RBC 4.39 L, Hgb 13.5 L, Hct 41.2 L, MCV 93.9, MCH 30.8, MCHC 32.8, RDW 13.1, Plt Count 215, MPV 8.3, Neut % (Auto) 86.7 H, Lymph % (Auto) 6.8 L, [place] % (Auto) 5.9, Eos % (Auto) 0.4, Baso % (Auto) 0.2, Neut # ( Auto) 13.3 H, Lymph # (Auto) 1.1, [place] # (Auto) 0.9, Eos # (Auto) 0.1, Baso # ( Auto) 0.0 10/17/17 06:34: Sodium 137, Potassium 3.8, Chloride 105, Carbon Dioxide 25, Anion Gap 10.8, BUN 26 H, Creatinine 1.11, Estimated Creat Clear 52, Estimated GFR 63, Est GFR ( Amer) 76, Glucose 98, Calcium 7.6 L, Total Bilirubin 0.6, AST 27, ALT 36, Alkaline Phosphatase 53, Total Protein 5.5 L, Albumin 2.3 L D, Globulin 3.2, Albumin/Globulin Ratio 0.7 L I & O for Last 24 hours: Intake & Output 10/14/17 10/15/17 10/16/17 10/17/17 11:59 11:59 11:59 11:59 Intake Total 2085 / 2085 1788 / 1788 237 / 237 Output Total 900 / 900 690 / 690 20 / 20 Balance 1185 / 1185 1098 / 1098 217 / 217 Weight 170 lb 9.005 oz - *Routine Abdominal Exam Present: soft, drain Progress Note: A&P (1) Abdominal pain Status: Acute Assessment and plan: Advance diet. Continue antibiotics. Current Visit: Yes (2) Acute cholecystitis Status: Acute Current Visit: Yes (3) Status post cholecystectomy Status: Acute Current Visit: Yes
--- NOTE | 2017-10-17 07:38 | Procedure Note ---
- Procedure: Performing Provider:: Abhi Carmichael MD
--- NOTE | 2017-10-17 08:20 | Progress Note ---
Internal Medicine - PN: Subj *Date: 10/17/17 *Time: 07:30 Interval history: No complaints. Alert and oriented x2, with some confusion Anterior lung field clear. Rate and rhythm regular. Abdomen soft, less RUQ tenderness, KELLY drain in place. Exam Vital signs and Labs for Last 24 Hours: Temp Pulse Resp BP Pulse Ox 98.3 F 87 20 114/60 95 10/17/17 08:00 10/17/17 08:00 10/17/17 08:00 10/17/17 08:00 10/17/17 08:00 Laboratory Results - last 24 hr 10/16/17 06:30: Total Counted 100, Neutrophils % (Manual) 90 H, Band Neutrophils % 1.0, Lymphocytes % (Manual) 4 L, Monocytes % (Manual) 5, Platelet Estimate Normal, RBC Morphology Normal 10/17/17 06:34: WBC 15.4 H, RBC 4.39 L, Hgb 13.5 L, Hct 41.2 L, MCV 93.9, MCH 30.8, MCHC 32.8, RDW 13.1, Plt Count 215, MPV 8.3, Neut % (Auto) 86.7 H, Lymph % (Auto) 6.8 L, [place] % (Auto) 5.9, Eos % (Auto) 0.4, Baso % (Auto) 0.2, Neut # ( Auto) 13.3 H, Lymph # (Auto) 1.1, [place] # (Auto) 0.9, Eos # (Auto) 0.1, Baso # ( Auto) 0.0 10/17/17 06:34: Sodium 137, Potassium 3.8, Chloride 105, Carbon Dioxide 25, Anion Gap 10.8, BUN 26 H, Creatinine 1.11, Estimated Creat Clear 52, Estimated GFR 63, Est GFR ( Amer) 76, Glucose 98, Calcium 7.6 L, Total Bilirubin 0.6, AST 27, ALT 36, Alkaline Phosphatase 53, Total Protein 5.5 L, Albumin 2.3 L D, Globulin 3.2, Albumin/Globulin Ratio 0.7 L I & O for Last 24 hours: Intake & Output 10/14/17 10/15/17 10/16/17 10/17/17 11:59 11:59 11:59 11:59 Intake Total 5 / 2085 1788 / 1788 237 / 237 Output Total 900 / 900 690 / 690 20 / 20 Balance 1185 / 1185 1098 / 1098 217 / 217 Weight 170 lb 9.005 oz Assessment and Plan (1) Abdominal pain Current visit: Yes Status: Acute Category: Medical Code(s): R10.9 - Unspecified abdominal pain (2) Acute cholecystitis Current visit: Yes Status: Acute Category: Medical Code(s): K81.0 - Acute cholecystitis (3) Status post cholecystectomy Current visit: Yes Status: Acute Category: Surgical Code(s): Z90.49 - Acquired absence of other specified parts of digestive tract - Assessment and plan all Dx Assessment and Plan for all problems:: Patient had some nausea through the night which resolved with zofran. He continues to have some confusion, less agitation. Tolerating clears well. PT consult today. He will likely need home health after discharge for therapy and wound care as he lives alone.
[2017-10-17 09:52] LABS: Lymphocytes % 12 % (10-50); Monocytes % 1 % (2-9); Neutrophils % 86 % (42-76); Total Cells Counted 100
[2017-10-18 06:53] LABS: Basophils % 0.3 % (0.1-2.0); Eosinophils # 0.3 K/mm3 (0.0-0.4); Eosinophils % 2.5 % (0.1-12.0); Hemoglobin 13.6 g/dL (14.1-18.0); Lymphocytes % 9.1 K/mm3 (10-50); Mean Corpuscular HGB Conc 33.1 g/dL (31.8-35.4); Mean Corpuscular Hemoglobin 30.8 pg (27.0-31.2); Mean Corpuscular Volume 93.1 fl (80-94); Mean Platelet Volume 7.8 fl (7.4-10.4); Monocytes # 0.7 K/mm3 (0.1-1.0); Monocytes % 6.7 % (1.7-9.3); Neutrophils # 8.4 K/mm3 (1.8-7.8); Neutrophils % 81.4 % (37.0-80.0); Platelet Count 239 K/mm3 (142-424); Red Blood Count 4.41 M/mm3 (4.60-6.20); Red Cell Distribution Width 13.1 % (11.5-17.5); White Blood Count 10.4 K/mm3 (4.8-10.8)
[2017-10-18 07:06] LABS: Albumin Level 2.3 gm/dL (3.4-5.0); Albumin/Globulin Ratio 0.7 (1.1-1.8); Anion Gap 10.8 mEq/L (5-15); Bilirubin,Total 0.6 mg/dL (0.2-1.0); Calcium 7.5 mg/dL (8.5-10.1); Globulin 3.4 gm/dl (1.3-3.2); Potassium 3.8 mmoL/L (3.5-5.1); Total Protein,Serum 5.7 gm/dL (6.4-8.2)
--- NOTE | 2017-10-18 07:31 | Progress Note ---
Subjective Patient reports: feels better Narrative: Tolerating a diet without difficulty. No complaints. Exam Vital signs and Labs for Last 24 Hours: Temp Pulse Resp BP Pulse Ox 99.2 F 94 H 16 139/86 90 L 10/18/17 04:00 10/18/17 04:00 10/18/17 04:00 10/18/17 04:00 10/18/17 04:00 Laboratory Results - last 24 hr 10/17/17 06:34: Total Counted 100, Neutrophils % (Manual) 86 H, Lymphocytes % ( Manual) 12, Atypical Lymphs % 1.0, Monocytes % (Manual) 1 L, Platelet Estimate Normal, Poikilocytosis 2+, [place] Cells 1+, Acanthocytes (Spur) 1+ 10/18/17 06:34: WBC 10.4 D, RBC 4.41 L, Hgb 13.6 L, Hct 41.0 L, MCV 93.1, MCH 30.8, MCHC 33.1, RDW 13.1, Plt Count 239, MPV 7.8, Neut % (Auto) 81.4 H, Lymph % (Auto) 9.1 L, [place] % (Auto) 6.7, Eos % (Auto) 2.5, Baso % (Auto) 0.3, Neut # ( Auto) 8.4 H, Lymph # (Auto) 1.0, [place] # (Auto) 0.7, Eos # (Auto) 0.3, Baso # ( Auto) 0.0 10/18/17 06:34: Sodium 140, Potassium 3.8, Chloride 106, Carbon Dioxide 27, Anion Gap 10.8, BUN 21 H, Creatinine 1.15, Estimated Creat Clear 50, Estimated GFR 60, Est GFR ( Amer) 73, Glucose 104, Calcium 7.5 L, Total Bilirubin 0.6, AST 28, ALT 43, Alkaline Phosphatase 64, Total Protein 5.7 L, Albumin 2.3 L , Globulin 3.4 H, Albumin/Globulin Ratio 0.7 L I & O for Last 24 hours: Intake & Output 10/15/17 10/16/17 10/17/17 10/18/17 11:59 11:59 11:59 11:59 Intake Total 2085 / 2085 1788 / 1788 237 / 237 1403 / 1403 Output Total 900 / 900 690 / 690 20 Balance 1185 / 1185 1098 / 1098 217 / 217 1393 / 1393 Weight 170 lb 9.005 oz - *Routine Abdominal Exam Present: soft, drain. Absent: tenderness Progress Note: A&P (1) Abdominal pain Status: Acute Assessment and plan: OLIVER MENDOZA drain. Okay from surgical standpoint for discharge home. Current Visit: Yes (2) Acute cholecystitis Status: Acute Current Visit: Yes (3) Status post cholecystectomy Status: Acute Current Visit: Yes
--- NOTE | 2017-10-18 08:18 | Discharge Summary ---
General - General Admission date: 10/13/17 Discharge date: 10/18/17 HPI HPI: 87-year-old white male who enjoys fairly good health except for memory loss issues who had a good morning yesterday morning and went to [facility] [facility] but then afterwards began to have some fairly significant upper quadrant bilateral/ epigastric pain. This was extremely painful and he came to the emergency department. Initial labs are unremarkable, although urinalysis has not been done, but CT scan showed evidence of distended gallbladder, and patient was kept overnight for observation Patient was found to have a progressive leukocytosis with left shift this morning. He therefore underwent gallbladder ultrasound. This reveals findings of distended thickened gallbladder with gallstones. Surgical consultation was obtained. Patient was started on Unasyn. Hospital Course Hospital Course: Patient was admitted, surgical consultation was obtained and the gallbladder was resected on the second day of admission. Very necrotic gallbladder, but uncomplicated procedure. KELLY drain was left in place. Unasyn was continued. The patient improved over the next couple of days. This morning his KELLY drain was removed, no fevers, improving leukocytosis. Patient will be discharged with close surgical follow-up antibiotic therapy as noted. Objective Vital signs: Temp Pulse Resp BP Pulse Ox 99.2 F 94 H 16 139/86 90 L 10/18/17 04:00 10/18/17 04:00 10/18/17 04:00 10/18/17 04:00 10/18/17 04:00 Narrative: Patient is awake, slightly confused because of his baseline dementia but no complaints of pain. Ate a good breakfast. Lungs have some rhonchi but improved with sitting up. Heart rate regular. Abdomen soft, surgical scars look great. No major tenderness. Results Labs on day of discharge: Labs from last 24 hours 10/18/17 10/18/17 10/17/17 06:34 06:34 06:34 WBC 10.4 D RBC 4.41 L Hgb 13.6 L Hct 41.0 L MCV 93.1 MCH 30.8 MCHC 33.1 RDW 13.1 Plt Count 239 MPV 7.8 Neut % (Auto) 81.4 H Lymph % (Auto) 9.1 L [place] % (Auto) 6.7 Eos % (Auto) 2.5 Baso % (Auto) 0.3 Neut # (Auto) 8.4 H Lymph # (Auto) 1.0 [place] # (Auto) 0.7 Eos # (Auto) 0.3 Baso # (Auto) 0.0 Total Counted 100 Neutrophils % (Manual) 86 H Lymphocytes % (Manual) 12 Atypical Lymphs % 1.0 Monocytes % (Manual) 1 L Platelet Estimate Normal Poikilocytosis 2+ [place] Cells 1+ Acanthocytes (Spur) 1+ Sodium 140 Potassium 3.8 Chloride 106 Carbon Dioxide 27 Anion Gap 10.8 BUN 21 H Creatinine 1.15 Estimated Creat Clear 50 Estimated GFR 60 Est GFR ( Amer) 73 Glucose 104 Calcium 7.5 L Total Bilirubin 0.6 AST 28 ALT 43 Alkaline Phosphatase 64 Total Protein 5.7 L Albumin 2.3 L Globulin 3.4 H Albumin/Globulin Ratio 0.7 L DS: Diagnosis - Discharge Diagnosis (1) Abdominal pain Status: Resolved (2) Acute cholecystitis Status: Resolved (3) Status post cholecystectomy Status: Acute Discharge Plan - Patient Discharge Instructions - Follow up Plan Home Medications: Home Medications Medication Instructions Recorded Confirmed Type Famotidine [Famotidine] 40 mg PO DAILY 10/13/17 10/13/17 History Levothyroxine Sodium 25 mcg PO DAILY 10/13/17 10/14/17 History [Levothyroxine 25mcg (0.025mg) Tab] Pravastatin Sodium [Pravachol] 40 mg PO DAILY 10/13/17 10/13/17 History Tamsulosin HCl [Flomax] 0.4 mg PO HS 10/13/17 10/15/17 History Trazodone HCl 50 mg PO HS 10/13/17 10/13/17 History Prescriptions/Medication Reconciliation: No Action Trazodone HCl 50 mg PO HS Tamsulosin HCl [Flomax] 0.4 mg PO HS Famotidine [Famotidine] 40 mg PO DAILY Pravastatin Sodium [Pravachol] 40 mg PO DAILY Levothyroxine Sodium [Levothyroxine 25mcg (0.025mg) Tab] 25 mcg PO DAILY
[2017-10-18 09:06] VITALS: BP 156/88
--- NOTE | 2017-10-18 09:29 | Progress Note ---
Internal Medicine - PN: Subj *Date: 10/18/17 *Time: 09:28 Exam Vital signs and Labs for Last 24 Hours: Temp Pulse Resp BP Pulse Ox 98.1 F 102 H 18 156/88 95 10/18/17 08:00 10/18/17 08:00 10/18/17 08:00 10/18/17 08:00 10/18/17 08:00 Laboratory Results - last 24 hr 10/17/17 06:34: Total Counted 100, Neutrophils % (Manual) 86 H, Lymphocytes % ( Manual) 12, Atypical Lymphs % 1.0, Monocytes % (Manual) 1 L, Platelet Estimate Normal, Poikilocytosis 2+, [place] Cells 1+, Acanthocytes (Spur) 1+ 10/18/17 06:34: WBC 10.4 D, RBC 4.41 L, Hgb 13.6 L, Hct 41.0 L, MCV 93.1, MCH 30.8, MCHC 33.1, RDW 13.1, Plt Count 239, MPV 7.8, Neut % (Auto) 81.4 H, Lymph % (Auto) 9.1 L, [place] % (Auto) 6.7, Eos % (Auto) 2.5, Baso % (Auto) 0.3, Neut # ( Auto) 8.4 H, Lymph # (Auto) 1.0, [place] # (Auto) 0.7, Eos # (Auto) 0.3, Baso # ( Auto) 0.0 10/18/17 06:34: Sodium 140, Potassium 3.8, Chloride 106, Carbon Dioxide 27, Anion Gap 10.8, BUN 21 H, Creatinine 1.15, Estimated Creat Clear 50, Estimated GFR 60, Est GFR ( Amer) 73, Glucose 104, Calcium 7.5 L, Total Bilirubin 0.6, AST 28, ALT 43, Alkaline Phosphatase 64, Total Protein 5.7 L, Albumin 2.3 L , Globulin 3.4 H, Albumin/Globulin Ratio 0.7 L I & O for Last 24 hours: Intake & Output 10/15/17 10/16/17 10/17/17 10/18/17 23:59 23:59 23:59 23:59 Intake Total 1719 / 1719 268 / 268 1254 / 1254 506 / 506 Output Total 640 / 640 50 / 50 20 / 20 10 / 10 Balance 1079 / 1079 218 / 218 1234 / 1234 496 / 496 Assessment and Plan (1) Abdominal pain Current visit: Yes Status: Resolved Category: Medical Code(s): R10.9 - Unspecified abdominal pain (2) Acute cholecystitis Current visit: Yes Status: Resolved Category: Medical Code(s): K81.0 - Acute cholecystitis (3) Status post cholecystectomy Current visit: Yes Status: Acute Category: Surgical Code(s): Z90.49 - Acquired absence of other specified parts of digestive tract The patient's infection will respond to the chosen ABx?: Yes Is the patient receiving the right drug, dose, and route?: Yes Could a more targeted ABx be ordered?: No (NEGATIVE CULTURES)
== END 2017-10-18 10:38 | disposition home health service (06) ==
LOC: ER 14:07 → 2ND 14:07
PROVIDERS: ADMIT Emergency Medicine; ATTEND Internal Medicine Adolescent Medicine

== ENCOUNTER 2019-06-30 08:23 | Observation (INO) ==
[2019-06-30 08:49] LABS: Microscopic, Urine URINE MICROSCOPIC (MICROSCOPIC)
[2019-06-30 08:55] LABS: Basophils % 0.3 % (0.1-2.0); Eosinophils % 0.3 % (0.1-12.0); Hematocrit 43.7 % (42.0-52.0); Hemoglobin 14.1 g/dL (14.1-18.0); Lymphocytes # 0.3 K/mm3 (0.7-4.5); Lymphocytes % 2.8 % (10-50); Mean Corpuscular HGB Conc 32.3 g/dL (31.8-35.4); Mean Corpuscular Volume 95.7 fl (80-94); Monocytes # 0.5 K/mm3 (0.1-1.0); Monocytes % 4.6 % (1.7-9.3); Neutrophils # 8.9 K/mm3 (1.8-7.8); Platelet Count 176 K/mm3 (142-424); Red Blood Count 4.56 M/mm3 (4.60-6.20); Red Cell Distribution Width 13.4 % (11.5-17.5); White Blood Count 9.7 K/mm3 (4.8-10.8)
[2019-06-30 08:56] LABS: Appearance,Urine SL CLOUDY (Clear); Bilirubin,Urine Negative (Negative); Blood, Urine 2+ (Negative); Color,Urine YELLOW (Yellow); Glucose,Urine (UA) Negative (Negative); Ketones,Urine Negative (Negative); Leukocyte Esterase,Urine Negative (Negative); PH,Urine 5.5 (5.0-8.5); Protein,Urine TRACE (Negative); Specific Gravity, Urine >= 1.030 (1.005-1.030); Urobilinogen,Urine 0.2 EU/dl (0.2)
--- NOTE | 2019-06-30 08:59 | Emergency Department Note ---
ED Disposition Clinical Impression: Vomiting and diarrhea, Dehydration Fall Qualifiers: Encounter type: initial encounter Qualified Code(s): W19.XXXA - Unspecified fall, initial encounter Disposition: Admitted as Observation Condition on Discharge: Fair Referrals: Provider,Referral, [Primary Care Provider] - - Critical Care Critical Care Time: No Attestation: On 06/30/19, the high probability of a clinically significant, sudden or life threatening deterioration of the following system(s) required my full and direct attention, intervention and personal management. The time I documented below is in addition to time spent performing reported procedures but includes the following listed in this critical care notation. Medical Decision Making - Josias Inquiry Pt receiving controlled substance: No Vital Signs: 06/30/19 08:24 06/30/19 09:53 06/30/19 10:31 Temperature 97.2 F L Temperature Source Oral Pulse Rate [Right Brachial] 102 H 101 H 101 H Respiratory Rate 16 Blood Pressure [Right Arm] 152/84 H 164/94 H 160/85 H Blood Pressure Mean [Right Arm] 106 117 110 Blood Pressure Source [Right Arm] Automatic Cuff Automatic Cuff Automatic Cuff Blood Pressure Position [Right Arm] Supine Sitting Sitting 02 Sat by Pulse Oximetry 99 96 97 Oxygen Delivery Method Room Air Room Air Room Air - Lab Data Lab Results 06/30/19 08:33: WBC 9.7, RBC 4.56 L, Hgb 14.1, Hct 43.7, MCV 95.7 H, MCH 30.9, MCHC 32.3, RDW 13.4, Plt Count 176, MPV 8.0, Neut % (Auto) 92.0 H, Lymph % (Auto) 2.8 L, [place] % (Auto) 4.6, Eos % (Auto) 0.3, Baso % (Auto) 0.3, Neut # (Auto) 8.9 H, Lymph # (Auto) 0.3 L, [place] # (Auto) 0.5, Eos # (Auto) 0.0, Baso # (Auto) 0.0, Total Counted 100, Neutrophils % (Manual) 92 H, Band Neutrophils % 5.0, Lymphocytes % (Manual) 1 L, Monocytes % (Manual) 2, Platelet Estimate Normal, RBC Morphology Normal 06/30/19 08:33: Sodium 141, Potassium 3.6, Chloride 104, Carbon Dioxide 26, Anion Gap 14.6, BUN 26 H, Creatinine 1.32 H, Estimated Creat Clear 42, Estimated GFR 51 L, Est GFR ( Amer) 62, Glucose 138 H, Calcium 8.5, Total Creatine Kinase 325 H 06/30/19 08:33: Urine Color Yellow, Urine Appearance Sl cloudy, Urine pH 5.5, Ur Specific [place] >= 1.030, Urine Protein Trace, Urine Glucose (UA) Negative, Urine Ketones Negative, Urine Blood 2+, Urine Nitrate Negative, Urine Bilirubin Negative, Urine Urobilinogen 0.2, Ur Leukocyte Esterase Negative, Urine RBC 5- 10, Urine WBC 3-5, Ur Squamous Epith Cells Occasional, Urine Bacteria 1+ 06/30/19 08:33: Lactate 1.2 06/30/19 08:33: Total Bilirubin 0.8, Direct Bilirubin 0.1, Indirect Bilirubin 0.7, AST 23, ALT 26, Alkaline Phosphatase 57, Total Protein 7.0, Albumin 3.5 06/30/19 08:33: Influenza Type A Ag Negative, Influenza Type B Ag Negative 06/30/19 08:33: TSH 2.12 D Result diagrams: 06/30/19 08:33 06/30/19 08:33 Orders (Tests/Meds): ED MEDICATIONS Discontinued Medications Generic Name Dose Route Start Last Admin Trade Name Freq PRN Reason Stop Dose Admin Sodium Chloride 1,000 mls @ 999 mls/hr 06/30/19 08:45 06/30/19 08:45 Sod Chlor 0.9% 1000ml Bag IV 06/30/19 09:45 999 mls/hr .Q1H1M YNES Administration ORDERS Category Date Time Status Diarrhea 6-11 Panel, Cdiff PCR Stat Lab 06/30/19 09:29 Ordered Blood Culture Stat Micro 06/30/19 08:33 Received - Radiology Data #1 Image(s): Chest, Pelvis Image Reviewed: Yes I have reviewed radiologist's interpretation Chest: FINDINGS: The cardiomediastinal silhouette and pulmonary vascularity are within normal limits. The lungs are clear without infiltrates, suspicious nodules, or pleural effusions. There is no pneumothorax. There are questionable nondisplaced fractures of the right lateral 5th and 6th ribs. Clinical correlation is recommended. Rib detail images could further evaluate if felt to be clinically indicated. IMPRESSION: No acute cardiopulmonary finding. Questionable fractures right 5th and 6th ribs. Dictated by: Matthew Mays 06/30/2019 09:48 Electronically signed by Matthew Mays in [place] 06/30/2019 09:48 Pelvis: negative - CT Data CT Scan: Head, C-Spine Time Received: 10:[address] Reviewed: Yes: I have viewed the radiologist's interpretation Findings Narrative: c-spine: FINDINGS: No fracture nor subluxation is evident. Normal prevertebral soft tissues. There is continued multilevel degenerative disc and facet disease similar to the previous exam. There is articular loss of disc space height C5-6. At C3-4 broad-based disc extrusion is noted causing extrinsic mass effect on the thecal sac. At C5-6 uncinate process and facet hypertrophy are causing left foraminal stenosis. Disc osteophyte complex causes extrinsic mass effect on the thecal sac. Normal C1/C2 relationships. Apices of lungs are clear with no acute findings. Mucosal thickening of sinusitis is incidentally noted in the right maxillary sinus and there is an associated air-fluid level indicating acute sinusitis. IMPRESSION: No acute fracture nor subluxation. Right maxillary sinusitis including air-fluid level of acute sinusitis. Dictated by: Matthew Mays 06/30/2019 09:19 Electronically signed by Matthew Mays in [place] 06/30/2019 09:19 head: FINDINGS: No midline shift, mass effect, intracranial hemorrhage, hydrocephalus, or extra-axial fluid collection is evident. There is atrophy compatible with the stated age. Hypodensity in the bilateral cerebral white matter compatible with small vessel ischemic gliotic disease is noted. The calvarium has an unremarkable appearance. No mastoid effusion. There is an air-fluid level of acute sinusitis in the right maxillary sinus and there is also mucosal thickening in the right maxillary sinus and in the bilateral ethmoid sinuses. IMPRESSION: No acute intracranial finding Sinusitis including acute sinusitis right maxillary sinus. Dictated by: Matthew Mays 06/30/2019 09:23 Electronically signed by Matthew Mays in [place] 06/30/2019 09:23 - ECG Data Tracing #1 EKG interpreted by Uli Coronado MD: Rhythm: sinus tachycardia Rate: 101 [place]: Left Ectopy: none Conduction: First-degree AV block ST Segment Changes: none T Wave Changes: none Q Waves: none No evidence of acute ischemia or injury - Physician Consults Physician Consulted: Tommy for Bess[place] Time: 09:25 Reason -: Admission Comment/Response: Agrees to admit the patient to the hospital. We discussed the patient's clinical information, including history, exam, laboratory and radiology results and ED course. Per hospital procedure, I will write temporary bridge inpatient orders on the patient. Specific orders requested by the admitting physician: Admit for hydration Additional Consult: Tommy Time: 10:33 Reason -: Pt condition Comment/Response: Discussed sinus concerns. Discussed CT findings of sinusitis. He recommends no antibiotics at this time, he will address. Medical Decision Narrative: 10:10 AM: Son is now present. He feels patient should not go back home when discharged, states this has happened before and feels he is at risk of more falls. Discussed test findings. Patient denies pain in right ribs and states he is not tender on repeat examination. Discussed sinus findings. Has rhinorrhea for 6 months, but denies any sinus pain or sore throat or fever. General Adult HPI - General Chief complaint: Fall Stated complaint: fall, weakness Time Seen by Provider: 06/30/19 08:58 Mode of Arrival: EMS Limitations: No Limitations Description of Symptoms (Recalled from ER Triage Doc. by RN): Fall c/o neck pain - History of Present Illness HPI narrative: History obtained from patient. He is brought in by ambulance. States that he was feeling fine until last night at about 2 AM, he developed vomiting and diarrhea when going to the bathroom he fell. He says initially after the first fall he was able to get himself up, but then fell again and could not get up due to generalized weakness. He says he laid on the floor for couple of hours. Crawled to the phone and called his son. He says that he thinks he hit the back of his head, no reported loss of consciousness. He says that his neck hurts, but he thinks it is from crawling on the floor and not from the impact. He denies any hip injury or any other injury to any other part of his body including chest, abdomen, back. - Related Data Home Medications Medication Instructions Recorded Confirmed Famotidine 40 mg PO DAILY 10/13/17 10/13/17 Levothyroxine Sodium 25 mcg PO DAILY 10/13/17 10/14/17 [Levothyroxine 25mcg (0.025mg) Tab] Pravastatin Sodium [Pravachol] 40 mg PO DAILY 10/13/17 10/13/17 Tamsulosin HCl [Flomax] 0.4 mg PO HS 10/13/17 10/15/17 Trazodone HCl 50 mg PO HS 10/13/17 10/13/17 Amoxicillin/Potassium Clav 500 mg PO TID 06/30/19 [Augmentin 500mg tab] Docusate Sodium [Colace] 100 mg PO BID 06/30/19 Polyethylene Glycol 3350 [Miralax 17 gm PO DAILY 06/30/19 17gm Packet] Previous Rx's Medication Instructions Recorded Acetaminophen with Codeine 1 tab PO Q6HP PRN #20 tab 10/18/17 [Tylenol with Codeine #3 tablet] Allergies Allergy/AdvReac Type Severity Reaction Status Date / Time No Known Allergies Allergy Verified 06/30/19 08:30 [facility] History - Hepatitis A Screen Drug use history?: No High risk sexual behaviors?: No History of sexually transmitted infection?: No Currently employed?: No Childcare worker?: No Do you have indoor plumbing?: Yes Do you have electricity?: Yes Attestation statement:: This patient has been screened for Hepatitis A risk factors. I have reviewed the patient's past medical history: Yes Medical History: Reports:: Hyperlipidemia Other Medical History: Reports: Arthritis, Thyroid Disease, Other Comment: Patient has mild dementia. History of BPH with history of prostate cancer Other Surgeries: Yes: Hernia Repair, Other - Social History Smoking Status: Unknown if ever smoked Alcohol Intake: never Alcohol Intake Frequency:: other Substance Use Type: denies use Occupational Status: other ROS Obtained: Yes All systems reviewed & no additional complaints - Constitutional Constitutional: Denies fever(s) - Cardiovascular Cardiovascular: Denies chest pain Physical Exam - General General appearance: alert, in no apparent distress - Head Head exam: atraumatic, normocephalic - Eye Eye exam: Present: normal appearance, EOMI - ENT ENT exam: Present: mucous membranes moist - Neck Neck exam: Present: normal inspection, trachea midline, tenderness (Mild posterior) - Chest Chest inspection: Present: normal inspection, symmetric chest wall rise - Respiratory Respiratory exam: Present: normal lung sounds bilaterally. Absent: respiratory distress - Cardiovascular Cardiovascular exam: Present: regular rate, normal rhythm, normal heart sounds - Abdominal Exam Abdominal exam: Present: soft. Absent: distention, tenderness - Extremities Exam Extremities exam: Present: normal inspection - Neurological Exam Neurological exam: Present: alert, oriented X3, CN II-XII intact. Absent: motor sensory deficit - Psychiatric Psychiatric exam: Present: normal affect, normal mood - Skin Skin exam: Present: warm, dry
[2019-06-30 09:07] LABS: Albumin Level 3.5 gm/dL (3.4-5.0); Bilirubin,Direct 0.1 mg/dL (0.0-0.2); Bilirubin,Indirect 0.7 mg/dL (0.0-0.9); Bilirubin,Total 0.8 mg/dL (0.2-1.0)
[2019-06-30 09:08] LABS: Anion Gap 14.6 mEq/L (5-15); Bacteria,Urine 1+ /lpf; Calcium 8.5 mg/dL (8.5-10.1); Squamous Epithelial Cell,Urine Occasional #/hpf (0-5)
[2019-06-30 09:28] LABS: Lymphocytes % 1 % (10-50); Monocytes % 2 % (2-9); Neutrophils % 92 % (42-76); RBC Morphology Normal; Total Cells Counted 100
--- NOTE | 2019-06-30 12:55 | Pharmacy Consult Notes ---
[facility] Pharmacy VTE Monitoring - Patient Demographics Admission date: 06/30/19 Report Date: 06/30/19 Time: 12:55 Allergies/Adverse Reactions: Patient Allergies No Known Allergies Allergy (Verified 06/30/19 08:30) Height: 1.8 m Weight: 72.575 kg Patient Problems: Current Active Problems Fall (Acute) Vomiting and diarrhea (Acute) Dehydration (Acute) - VTE Risk Labs: VTE Related Lab Results Hgb 14.1 g/dL (14.1-18.0) 06/30/19 08:33 Hct 43.7 % (42.0-52.0) 06/30/19 08:33 Plt Count 176 K/mm3 (142-424) 06/30/19 08:33 BUN 26 mg/dL (7-18) H 06/30/19 08:33 Creatinine 1.32 mg/dL (0.70-1.30) H 06/30/19 08:33 Estimated Creat Clear 42 mL/min (50-200) 06/30/19 08:33 Was VTE Risk Assessment Performed: Yes - Prophylaxis VTE Prophylaxis Ordered?: Yes Types of VTE Prophylaxis: TEDS Knee High Location of Applied Device: Bilateral Lower Extremeties - VTE Diagnosis Confirmed Treatment or plan recommended: Continue Current Treatment
--- NOTE | 2019-06-30 13:07 | History & Physical Report ---
*Admission Date: 06/30/19 *Chief complaint: Nausea, vomiting, diarrhea, and fall *History of present illness: 88-year-old gentleman who states being at home and having a fall early this morning. He got up to go to the bathroom because he had an episode of vomiting and then a subsequent episode of diarrhea. While up approximately 4 AM he recalls getting little dizzy and falling to the floor. He felt weak and was unable to get up. He scooted on the floor to a phone but this took him quite some time. By the time he was able to call for help, EMS arrived and brought him to the ER. Upon arrival he was noted to have slight elevation in his CPK levels. Concern for mild TEO. Admitted for observation for rehydration and physical therapy assessment. Imaging with concern for possible nondisplaced rib fractures however patient has no findings on clinical exam. Denies confusion, loss of consciousness, hitting his head. No complaint of shortness of breath, chest pain. Still has mild abdominal discomfort but denies camryn nausea or abdominal pain. Febrile [facility] History I have reviewed the patient's past medical history: Yes Medical History: Reports:: BPH, Hyperlipidemia *Have you ever received a pneumonia vaccine?: No *Have you received a flu vaccine this season?: No Other Medical History: Reports: Arthritis, Thyroid Disease (hypothyroid), Other (dementia) Other Surgeries: Yes: Hernia Repair, Other - *Social History Smoking Status: Never smoker Alcohol Intake: never Alcohol Intake Frequency:: other Substance Use Type: denies use *Occupational Status:: retired, other Housing: house Household Members: none *Travel in the last 8 weeks: None Family Hx:: No significant family history Review of Systems - Review of Systems Review of systems:: pertinent systems reviewed and negative unless documented below Meds Home Medications Medication Instructions Recorded Confirmed Type Famotidine 40 mg PO DAILY 10/13/17 06/30/19 History Donepezil HCl [Donepezil ODT 5mg] 5 mg PO HS 06/30/19 06/30/19 History Tamsulosin HCl 0.4 mg PO DAILY 06/30/19 06/30/19 History Trazodone HCl 50 mg PO HS 06/30/19 06/30/19 History Allergies Allergy/AdvReac Type Severity Reaction Status Date / Time No Known Allergies Allergy Verified 06/30/19 08:30 Exam Vital signs and Labs for Last 24 Hours: Temp Pulse Resp BP Pulse Ox 98.3 F 104 H 18 160/79 H 96 06/30/19 12:51 06/30/19 12:51 06/30/19 12:51 06/30/19 12:51 06/30/19 12:51 Laboratory Results - last 24 hr 06/30/19 08:33: WBC 9.7, RBC 4.56 L, Hgb 14.1, Hct 43.7, MCV 95.7 H, MCH 30.9, MCHC 32.3, RDW 13.4, Plt Count 176, MPV 8.0, Neut % (Auto) 92.0 H, Lymph % (Auto) 2.8 L, [place] % (Auto) 4.6, Eos % (Auto) 0.3, Baso % (Auto) 0.3, Neut # (Auto) 8.9 H, Lymph # (Auto) 0.3 L, [place] # (Auto) 0.5, Eos # (Auto) 0.0, Baso # (Auto) 0.0, Total Counted 100, Neutrophils % (Manual) 92 H, Band Neutrophils % 5.0, Lymphocytes % (Manual) 1 L, Monocytes % (Manual) 2, Platelet Estimate Normal, RBC Morphology Normal 06/30/19 08:33: Sodium 141, Potassium 3.6, Chloride 104, Carbon Dioxide 26, An ion Gap 14.6, BUN 26 H, Creatinine 1.32 H, Estimated Creat Clear 42, Estimated GFR 51 L, Est GFR ( Amer) 62, Glucose 138 H, Calcium 8.5, Total Creatine Kinase 325 H 06/30/19 08:33: Urine Color Yellow, Urine Appearance Sl cloudy, Urine pH 5.5, Ur Specific [place] >= 1.030, Urine Protein Trace, Urine Glucose (UA) Negative, Urine Ketones Negative, Urine Blood 2+, Urine Nitrate Negative, Urine Bilirubin Negative, Urine Urobilinogen 0.2, Ur Leukocyte Esterase Negative, Urine RBC 5- 10, Urine WBC 3-5, Ur Squamous Epith Cells Occasional, Urine Bacteria 1+ 06/30/19 08:33: Lactate 1.2 06/30/19 08:33: Total Bilirubin 0.8, Direct Bilirubin 0.1, Indirect Bilirubin 0.7, AST 23, ALT 26, Alkaline Phosphatase 57, Total Protein 7.0, Albumin 3.5 06/30/19 08:33: Influenza Type A Ag Negative, Influenza Type B Ag Negative 06/30/19 08:33: TSH 2.12 D I & O for Last 24 hours: Intake & Output 06/27/19 06/28/19 06/29/19 06/30/19 23:59 23:59 23:59 23:59 Intake Total 1000 / 1000 Balance 1000 / 1000 Weight 72.575 kg - Constitutional no acute distress, thin Comments: elderly - *Routine HEENT Exam Head: Present: normocephalic Eye: Present: EOMI, PERRL ENT: Present: mucous membranes moist - *Routine Neck Exam Present: supple. Absent: lymphadenopathy - Routine Chest/Breast/Axilla Exam Chest wall: Absent: tenderness - *Routine Respiratory Exam Present: CTA bilaterally - *Routine Cardiovascular Exam Present: RRR - *Routine Abdominal Exam Present: soft, normoactive bowel sounds. Absent: tenderness - *Routine Extremities Exam Absent: cyanosis, clubbing, edema - *Routine Skin Exam Present: warm. Absent: rash - *Routine Neurological Exam Present: alert, oriented X3. Absent: facial asymmetry, normal speech, tremors Speech garbled but intelligible Assessment and Plan (1) Fall Current visit: Yes Status: Acute Qualifiers: Encounter type: initial encounter Qualified Code(s): W19.XXXA - Unspecified fall, initial encounter Category: Medical Code(s): W19.XXXA - Unspecified fall, initial encounter (2) Vomiting and diarrhea Current visit: Yes Status: Acute Category: Medical Code(s): R11.10 - Vomiting, unspecified; R19.7 - Diarrhea, unspecified (3) Dementia Current visit: No Status: Acute Category: Medical Code(s): F03.90 - Unspecified dementia without behavioral disturbance (4) Hypertension Current visit: No Status: Acute Category: Medical Code(s): I10 - Essential (primary) hypertension (5) Secondary rhabdomyolysis Current visit: Yes Status: Acute Category: Medical Code(s): M62.82 - Rhabdomyolysis Mild, secondary to fall and prolonged time on the floor, IV rehydration. Monitor kidney function in the morning (6) TEO (acute kidney injury) Current visit: Yes Status: Acute Category: Medical Code(s): N17.9 - Acute kidney failure, unspecified Suspect secondary to dehydration from nausea and vomiting as well as possibly from mild rhabdo. Monitor for improvement with morning labs. - Assessment and plan all Dx Assessment and Plan for all problems:: 88-year-old male who lives independently and sustained a fall at home. Concern from family for worsening debility. Resume home medications for chronic conditions. Will have physical therapy assess patient given his fall and difficulty getting to the phone to call for help. Concerned that patient is not safe to go home by himself given his cognitive impairment and potential needs for assistance. Further management pending PT assessment and response to fluids overnight.
--- NOTE | 2019-06-30 14:11 | Electrocardiograph Report ---
APPROVED REPORT Exam: Resting ECG HR:101 bpm ECG Measurements Heart Rate 101 AXES NV 210 P 73 QRSd 120 QRS -68 QT 360 T77 QTc 466 <Conclusion> Sinus tachycardia with 1st degree AV block Left anterior fascicular block Abnormal ECG Electronically signed by : Selvin Reed, 06/30/2019 14:10:24
[2019-07-01 06:50] LABS: Anion Gap 14.3 mEq/L (5-15)
[2019-07-01 07:51] LABS: Calcium 7.5 mg/dL (8.5-10.1)
--- NOTE | 2019-07-01 08:06 | Discharge Summary ---
General - General Admission date:: 06/30/19 Discharge date: 07/01/19 HPI HPI: 88-year-old gentleman who states being at home and having a fall early this morning. He got up to go to the bathroom because he had an episode of vomiting and then a subsequent episode of diarrhea. While up approximately 4 AM he recalls getting little dizzy and falling to the floor. He felt weak and was unable to get up. He scooted on the floor to a phone but this took him quite some time. By the time he was able to call for help, EMS arrived and brought him to the ER. Upon arrival he was noted to have slight elevation in his CPK levels. Concern for mild TEO. Admitted for observation for rehydration and physical therapy assessment. Imaging with concern for possible nondisplaced rib fractures however patient has no findings on clinical exam. Denies confusion, loss of consciousness, hitting his head. No complaint of shortness of breath, chest pain. Still has mild abdominal discomfort but denies camryn nausea or abdominal pain. Febrile Hospital Course Hospital Course: Patient was admitted overnight. Roentgenograms and neurologic checks were unremarkable, and patient tolerated IV fluids well and was able to eat and drink normally. Interestingly, stool PCR showed norovirus, but patient had no further diarrhea. Had very mild hypokalemia and hypocalcemia but had no symptoms whatsoever this morning. This morning exam continues to be unremarkable for trauma or other metabolic issues but he continues to have significant memory impairment. Of note, patient has a history of memory impairment over the past several years. 5 or 6 years ago I attempted to start patient on Aricept and memantine but patient had a severe ataxic reaction with dizziness with frequent falls and has not been on these medicines as a result. Patient continues to live by himself and drives. I had a long and very repetitive discussion with patient this morning about his on suitability to drive any longer and I have recommended complete cessation of driving activities. I also discussed this with his son. Patient is somewhat upset about this. Also, patient's family indicates they feel like he needs to either live with 1 of his children or 1 of them needs to be with him most of the time and I completely agree with this. I also discussed this with the patient. Family will make some arrangements. Otherwise patient has reached maximal medical provement in the hospital. We will discharge to home. I will schedule follow-up in my office early next week. Objective Vital signs: Temp Pulse Resp BP Pulse Ox 97.9 F 90 17 132/67 92 L 07/01/19 04:00 07/01/19 04:00 07/01/19 04:00 07/01/19 04:00 07/01/19 04:00 Narrative: Patient is alert. Pleasant. Has eaten most of his breakfast. No complaints of pain. Oropharynx clear, no cranial nerve deficits. Heart rate regular. Lungs are clear, abdomen soft, able to move all extremities well. No evidence of bony trauma. Neurologic exam nonfocal as noted except for significant memory loss. Results Labs on day of discharge: Labs from last 24 hours 07/01/19 06/30/19 06/30/19 06:00 22:02 08:33 WBC RBC Hgb Hct MCV MCH MCHC RDW Plt Count MPV Neut % (Auto) Lymph % (Auto) [place] % (Auto) Eos % (Auto) Baso % (Auto) Neut # (Auto) Lymph # (Auto) [place] # (Auto) Eos # (Auto) Baso # (Auto) Total Counted Neutrophils % (Manual) Band Neutrophils % Lymphocytes % (Manual) Monocytes % (Manual) Platelet Estimate RBC Morphology Sodium 140 Potassium 3.3 L Chloride 106 Carbon Dioxide 23 Anion Gap 14.3 BUN 20 H Creatinine 1.04 D Estimated Creat Clear 51 Estimated GFR 68 Est GFR ( Amer) 82 D Glucose 94 D Lactate Calcium 7.5 L D Total Bilirubin Direct Bilirubin Indirect Bilirubin AST ALT Alkaline Phosphatase Total Creatine Kinase Total Protein Albumin TSH 2.12 D Urine Color Urine Appearance Urine pH Ur Specific [place] [address] Urine Protein Urine Glucose (UA) Urine Ketones Urine Blood Urine Nitrate Urine Bilirubin Urine Urobilinogen Ur Leukocyte Esterase Urine RBC Urine WBC Ur Squamous Epith Cells Urine Bacteria Stl Aeromonas (PCR) Not detected Stl C. cayetanensis PCR Not detected Stool Rotavirus (PCR) Not detected Stl Adenov F 40/41 PCR Not detected Stool Astrovirus (PCR) Not detected Stool Campylobacter PCR Not detected Stl C.difficile Tox PCR Not detected Stool Cryptosporidium PCR Not detected Stl E.coli Shiga Tox PCR Not detected Stool E coli O157 PCR Not detected Stl Enterotoxigenic E PCR Not detected Stool EPEC (PCR) Not detected Stool EAEC (PCR) Not detected Stl E. histolytica PCR Not detected Stool Giardia Lamblia PCR Not detected Stool Salmonella PCR Not detected Stool Sapovirus (PCR) Not detected Stl P. shigelloides PCR Not detected Stl Shigella/EIEC PCR Not detected St Y.enterocolitica PCR Not detected Stool Vibrio (PCR) Not detected Stl Vibrio cholerae PCR Not detected Stl Norovirus GI/GII PCR Detected A Influenza Type A Ag Influenza Type B Ag 06/30/19 06/30/19 06/30/19 08:33 08:33 08:33 WBC RBC Hgb Hct MCV MCH MCHC RDW Plt Count MPV Neut % (Auto) Lymph % (Auto) [place] % (Auto) Eos % (Auto) Baso % (Auto) Neut # (Auto) Lymph # (Auto) [place] # (Auto) Eos # (Auto) Baso # (Auto) Total Counted Neutrophils % (Manual) Band Neutrophils % Lymphocytes % (Manual) Monocytes % (Manual) Platelet Estimate RBC Morphology Sodium Potassium Chloride Carbon Dioxide Anion Gap BUN Creatinine Estimated Creat Clear Estimated GFR Est GFR ( Amer) Glucose Lactate 1.2 Calcium Total Bilirubin 0.8 Direct Bilirubin 0.1 Indirect Bilirubin 0.7 AST 23 ALT 26 Alkaline Phosphatase 57 Total Creatine Kinase Total Protein 7.0 Albumin 3.5 TSH Urine Color Urine Appearance Urine pH Ur Specific [address] Urine Protein Urine Glucose (UA) Urine Ketones Urine Blood Urine Nitrate Urine Bilirubin Urine Urobilinogen Ur Leukocyte Esterase Urine RBC Urine WBC Ur Squamous Epith Cells Urine Bacteria Stl Aeromonas (PCR) Stl C. cayetanensis PCR Stool Rotavirus (PCR) Stl Adenov F 40/41 PCR Stool Astrovirus (PCR) Stool Campylobacter PCR Stl C.difficile Tox PCR Stool Cryptosporidium PCR Stl E.coli Shiga Tox PCR Stool E coli O157 PCR Stl Enterotoxigenic E PCR Stool EPEC (PCR) Stool EAEC (PCR) Stl E. histolytica PCR Stool Giardia Lamblia PCR Stool Salmonella PCR Stool Sapovirus (PCR) Stl P. shigelloides PCR Stl Shigella/EIEC PCR St Y.enterocolitica PCR Stool Vibrio (PCR) Stl Vibrio cholerae PCR Stl Norovirus GI/GII PCR Influenza Type A Ag Negative Influenza Type B Ag Negative 06/30/19 06/30/19 06/30/19 08:33 08:33 08:33 WBC 9.7 RBC 4.56 L Hgb 14.1 Hct 43.7 MCV 95.7 H MCH 30.9 MCHC 32.3 RDW 13.4 Plt Count 176 MPV 8.0 Neut % (Auto) 92.0 H Lymph % (Auto) 2.8 L [place] % (Auto) 4.6 Eos % (Auto) 0.3 Baso % (Auto) 0.3 Neut # (Auto) 8.9 H Lymph # (Auto) 0.3 L [place] # (Auto) 0.5 Eos # (Auto) 0.0 Baso # (Auto) 0.0 Total Counted 100 Neutrophils % (Manual) 92 H Band Neutrophils % 5.0 Lymphocytes % (Manual) 1 L Monocytes % (Manual) 2 Platelet Estimate Normal RBC Morphology Normal Sodium 141 Potassium 3.6 Chloride 104 Carbon Dioxide 26 Anion Gap 14.6 BUN 26 H Creatinine 1.32 H Estimated Creat Clear 42 Estimated GFR 51 L Est GFR ( Amer) 62 Glucose 138 H Lactate Calcium 8.5 Total Bilirubin Direct Bilirubin Indirect Bilirubin AST ALT Alkaline Phosphatase Total Creatine Kinase 325 H Total Protein Albumin TSH Urine Color Yellow Urine Appearance Sl cloudy Urine pH 5.[address] >= 1.030 Urine Protein Trace Urine Glucose (UA) Negative Urine Ketones Negative Urine Blood 2+ Urine Nitrate Negative Urine Bilirubin Negative Urine Urobilinogen 0.2 Ur Leukocyte Esterase Negative Urine RBC 5-10 Urine WBC 3-5 Ur Squamous Epith Cells Occasional Urine Bacteria 1+ Stl Aeromonas (PCR) Stl C. cayetanensis PCR Stool Rotavirus (PCR) Stl Adenov F 40/41 PCR Stool Astrovirus (PCR) Stool Campylobacter PCR Stl C.difficile Tox PCR Stool Cryptosporidium PCR Stl E.coli Shiga Tox PCR Stool E coli O157 PCR Stl Enterotoxigenic E PCR Stool EPEC (PCR) Stool EAEC (PCR) Stl E. histolytica PCR Stool Giardia Lamblia PCR Stool Salmonella PCR Stool Sapovirus (PCR) Stl P. shigelloides PCR Stl Shigella/EIEC PCR St Y.enterocolitica PCR Stool Vibrio (PCR) Stl Vibrio cholerae PCR Stl Norovirus GI/GII PCR Influenza Type A Ag Influenza Type B Ag DS: Diagnosis - Discharge Diagnosis (1) Fall Status: Acute (2) Vomiting and diarrhea Status: Resolved (3) Dementia Status: Chronic (4) Hypertension Status: Chronic (5) Secondary rhabdomyolysis Status: Resolved (6) TEO (acute kidney injury) Status: Resolved Discharge Plan - Patient Discharge Instructions ACTIVITY: Continue current activity DIET: continue same diet Patient Instructions: DI for Dehydration -- Adult, How to Prevent Falls - Follow up Plan Follow up with: Pearl Ac APRN [Nurse Practitioner] - 07/07/19 Disposition: Home, Self-Fdc Medications: Home Medications Medication Instructions Recorded Confirmed Type Famotidine 40 mg PO DAILY 10/13/17 06/30/19 History Donepezil HCl [Donepezil ODT 5mg] 5 mg PO HS 06/30/19 06/30/19 History Tamsulosin HCl 0.4 mg PO DAILY 06/30/19 06/30/19 History Trazodone HCl 50 mg PO HS 06/30/19 06/30/19 History Prescriptions/Medication Reconciliation: Continued Famotidine 40 mg PO DAILY Donepezil HCl [Donepezil ODT 5mg] 5 mg PO HS Tamsulosin HCl 0.4 mg PO DAILY Trazodone HCl 50 mg PO HS - Problem Reconciliation Problems Reviewed?: Yes
== END 2019-07-01 10:00 | disposition home or self-care (01) ==
LOC: 2ND 08:23 → ER 08:23 → 2ND 12:27
PROVIDERS: ADMIT Internal Medicine Adolescent Medicine; ATTEND Internal Medicine Adolescent Medicine
CPT/HCPCS: 36415; 70450; 71010; 71045; 72125; 72170; 80048; 80076; 81001; 82550; 83605; 84443; 85007; 85025; 87040; 87275; 87276; 87506; 90686; 93005; 96365; 97162; 97166; 99285; G0378

== ENCOUNTER 2019-07-10 22:42 | Observation (INO) ==
[2019-07-11 06:39] LABS: Basophils % 0.2 % (0.1-2.0); Eosinophils % 0.1 % (0.1-12.0); Hematocrit 36.3 % (42.0-52.0); Lymphocytes # 0.7 K/mm3 (0.7-4.5); Lymphocytes % 5.6 % (10-50); Mean Corpuscular HGB Conc 33.5 g/dL (31.8-35.4); Mean Corpuscular Volume 92.7 fl (80-94); Mean Platelet Volume 7.8 fl (7.4-10.4); Monocytes # 0.7 K/mm3 (0.1-1.0); Monocytes % 5.3 % (1.7-9.3); Neutrophils # 11.1 K/mm3 (1.8-7.8); Neutrophils % 88.7 % (37.0-80.0); Platelet Count 181 K/mm3 (142-424); Red Blood Count 3.91 M/mm3 (4.60-6.20); Red Cell Distribution Width 13.4 % (11.5-17.5); White Blood Count 12.5 K/mm3 (4.8-10.8)
[2019-07-11 06:44] LABS: Hemoglobin 12.1 g/dL (14.1-18.0)
[2019-07-11 06:46] LABS: Calcium 7.7 mg/dL (8.5-10.1)
[2019-07-11 08:37] LABS: Lymphocytes % 9 % (10-50); Monocytes % 2 % (2-9); Neutrophils % 88 % (42-76); RBC Morphology Normal; Total Cells Counted 100
--- NOTE | 2019-07-11 08:48 | History & Physical Report ---
*Admission Date: 07/10/19 *Chief complaint: Gram-negative nury bacteremia *History of present illness: 88-year-old white male with significant history of dementia, prostatitis and recurrent urinary tract infections who recently was admitted to the personal care wing of a local transitional care facility. Yesterday morning he was brought to the emergency department after a fall, exam was unremarkable patient was found to have urinary tract infection, and treated with levofloxacin and discharged back to the personal fpc. He was doing well, but we were contacted yesterday evening with positive blood cultures. I contacted the personal fpc, and they reported that patient was prescribed levofloxacin orally from the emergency room but they were unsure if he was taking it as he is in a wing in which he does not have directly observed/healthcare personnel administered medication. Given his memory deficits and unreliability of finishing a course of antibiotics I brought him back to the hospital for direct admission for IV antibiotics and further evaluation of this bacteremia. He feels well this morning. His only complaint is not having a bowel movement for the past couple of days. [facility] History I have reviewed the patient's past medical history: Yes Medical History: Reports:: BPH, Hyperlipidemia Denies:: Diabetes Mellitus Type 1, Diabetes Mellitus Type 2 *Have you ever received a pneumonia vaccine?: No *Have you received a flu vaccine this season?: Yes Other Medical History: Reports: Arthritis, Thyroid Disease (hypothyroid), Other (dementia) Other Surgeries: Yes: Hernia Repair, Other - *Social History Educational Level: Attended College Smoking Status: Never smoker Alcohol Intake: never Alcohol Intake Frequency:: other Substance Use Type: denies use *Occupational Status:: retired, other Housing: [facility] Household Members: none *Travel in the last 8 weeks: None Family Hx:: Unable to obtain Review of Systems - Review of Systems Review of systems:: unable to obtain Patient's dementia precludes a very accurate/detailed review of systems but he specifically denies pain or breathing problems, only mentions his bowel movements as noted above. Meds Home Medications Medication Instructions Recorded Confirmed Type Famotidine 40 mg PO DAILY 10/13/17 07/11/19 History Donepezil HCl [Donepezil ODT 5mg] 5 mg PO HS 06/30/19 07/11/19 History Tamsulosin HCl 0.4 mg PO DAILY 06/30/19 07/11/19 History Hydrocortisone [Proctozone-Hc] 30 gm TP BID PRN 07/10/19 07/11/19 History Levothyroxine Sodium 50 mcg PO DAILY 07/10/19 07/11/19 History [Levothyroxine 50mcg (0.05mg) Tab] Pravastatin Sodium [Pravachol 40mg 40 mg PO HS 07/10/19 07/11/19 History Tablet] levoFLOXacin [Levaquin 500mg 500 mg PO DAILY 07/11/19 07/11/19 History tab] Allergies Allergy/AdvReac Type Severity Reaction Status Date / Time No Known Allergies Allergy Verified 06/30/19 08:30 Exam Vital signs and Labs for Last 24 Hours: Temp Pulse Resp BP Pulse Ox 99.1 F 93 H 22 135/80 99 07/11/19 07:54 07/11/19 07:54 07/11/19 07:54 07/11/19 07:54 07/11/19 07:54 Laboratory Results - last 24 hr 07/11/19 06:00: WBC 12.5 H, RBC 3.91 L, Hgb 12.1 L D, Hct 36.3 L, MCV 92.7, MCH 31.0, MCHC 33.5, RDW 13.4, Plt Count 181, MPV 7.8, Neut % (Auto) 88.7 H, Lymph % (Auto) 5.6 L, [place] % (Auto) 5.3, Eos % (Auto) 0.1, Baso % (Auto) 0.2, Neut # (Auto) 11.1 H, Lymph # (Auto) 0.7, [place] # (Auto) 0.7, Eos # (Auto) 0.0, Baso # (Auto) 0.0, Total Counted 100, Neutrophils % (Manual) 88 H, Band Neutrophils % 1.0, Lymphocytes % (Manual) 9 L, Monocytes % (Manual) 2, Platelet Estimate Normal, RBC Morphology Normal 07/11/19 06:00: Sodium 138, Potassium 4.0, Chloride 104, Carbon Dioxide 23, Anion Gap 15.0, BUN 24 H, Creatinine 1.23, Estimated Creat Clear 44, Estimated GFR 56 L, Est GFR ( Amer) 67, Glucose 100 D, Calcium 7.7 L I & O for Last 24 hours: Intake & Output 07/08/19 07/09/19 07/10/19 07/11/19 11:59 11:59 11:59 11:59 Intake Total 645 / 645 Output Total 400 / 400 Balance 245 / 245 Weight 162 lb 4.8 oz Narrative: Patient is pleasant. Talkative. Cranial nerves intact, oropharynx clear, no JVD. No ENT abnormalities. Lungs are clear, abdomen soft, heart rate regular. No edema noted. Moving all extremities well. Assessment and Plan (1) Bacteremia Current visit: Yes Status: Acute Category: Medical Code(s): R78.81 - Bacteremia Given inability to accurately/reliably take p.o. Levaquin to hospital for IV therapy. Cultures were taken again this morning. White count is acceptable. Kidney function reasonable. Continue antibiotics and await further culture results. (2) Constipation by delayed colonic transit Current visit: No Status: Acute Category: Medical Code(s): K59.01 - Slow transit constipation Start MiraLAX and Dulcolax p.o.
--- NOTE | 2019-07-11 13:01 | Pharmacy Consult Notes ---
[facility] VTE Monitoring - Patient Demographics Admission date: 07/10/19 Report Date: 07/11/19 Time: 13:01 Allergies/Adverse Reactions: Patient Allergies No Known Allergies Allergy (Verified 06/30/19 08:30) Height: 1.8 m Weight: 73.618 kg Patient Problems: Current Active Problems Bacteremia (Acute) - VTE Risk Labs: VTE Related Lab Results Hgb 12.1 g/dL (14.1-18.0) L D 07/11/19 06:00 Hct 36.3 % (42.0-52.0) L 07/11/19 06:00 Plt Count 181 K/mm3 (142-424) 07/11/19 06:00 BUN 24 mg/dL (7-18) H 07/11/19 06:00 Creatinine 1.23 mg/dL (0.70-1.30) 07/11/19 06:00 Estimated Creat Clear 44 mL/min (50-200) 07/11/19 06:00 VTE Score: 3 VTE Risk Level: Low Risk - Prophylaxis VTE Prophylaxis Ordered?: Yes Types of VTE Prophylaxis: TEDS Knee High Location of Applied Device: Bilateral Lower Extremeties
[2019-07-12 06:08] LABS: Basophils % 0.1 % (0.1-2.0); Eosinophils % 0.4 % (0.1-12.0); Hemoglobin 11.9 g/dL (14.1-18.0); Lymphocytes # 0.9 K/mm3 (0.7-4.5); Lymphocytes % 8.8 % (10-50); Mean Corpuscular HGB Conc 33.1 g/dL (31.8-35.4); Mean Corpuscular Volume 91.7 fl (80-94); Mean Platelet Volume 7.9 fl (7.4-10.4); Monocytes # 0.7 K/mm3 (0.1-1.0); Neutrophils # 8.4 K/mm3 (1.8-7.8); Neutrophils % 83.7 % (37.0-80.0); Platelet Count 190 K/mm3 (142-424); Red Blood Count 3.93 M/mm3 (4.60-6.20); Red Cell Distribution Width 13.3 % (11.5-17.5); White Blood Count 10.1 K/mm3 (4.8-10.8)
[2019-07-12 06:17] LABS: Anion Gap 14.9 mEq/L (5-15); Calcium 7.1 mg/dL (8.5-10.1)
--- NOTE | 2019-07-12 08:47 | Progress Note ---
Internal Medicine - PN: Subj *Date: 07/12/19 *Time: 08:46 Interval history: Overall patient feels much better. Had a very large bowel movement yesterday and this has significantly improved his abdominal comfort. No fevers. Tolerating IV medications well. Exam Vital signs and Labs for Last 24 Hours: Temp Pulse Resp BP Pulse Ox 99.8 F H 96 H 20 131/67 94 L 07/12/19 07:22 07/12/19 07:22 07/12/19 07:22 07/12/19 07:22 07/12/19 07:22 Laboratory Results - last 24 hr 07/12/19 05:40: WBC 10.1, RBC 3.93 L, Hgb 11.9 L, Hct 36.0 L, MCV 91.7, MCH 30.4, MCHC 33.1, RDW 13.3, Plt Count 190, MPV 7.9, Neut % (Auto) 83.7 H, Lymph % (Auto) 8.8 L, [place] % (Auto) 7.0, Eos % (Auto) 0.4, Baso % (Auto) 0.1, Neut # (Auto) 8.4 H, Lymph # (Auto) 0.9, [place] # (Auto) 0.7, Eos # (Auto) 0.0, Baso # (Auto) 0.0 07/12/19 05:40: Sodium 137, Potassium 3.9, Chloride 104, Carbon Dioxide 22, Anion Gap 14.9, BUN 18, Creatinine 0.98 D, Estimated Creat Clear 55, Estimated GFR 72, Est GFR ( Amer) 88 D, Glucose 104, Calcium 7.1 L I & O for Last 24 hours: Intake & Output 07/09/19 07/10/19 07/11/19 07/12/19 11:59 11:59 11:59 11:59 Intake Total 745 / 745 1380 / 1380 Output Total 750 / 750 700 / 700 Balance -5 / -5 680 / 680 Weight 162 lb 4.8 oz 165 lb 4 oz - Constitutional no acute distress - *Routine HEENT Exam Head: Present: normocephalic Eye: Present: EOMI, PERRL ENT: Present: mucous membranes moist - *Routine Neck Exam Present: supple. Absent: JVD - *Routine Respiratory Exam Present: accessory muscle use, CTA bilaterally - *Routine Cardiovascular Exam Present: RRR, Normal S1 - *Routine Abdominal Exam Present: soft, normoactive bowel sounds - *Routine Extremities Exam Absent: cyanosis, clubbing - *Routine Neurological Exam Present: alert Assessment and Plan (1) Bacteremia Current visit: Yes Status: Acute Category: Medical Code(s): R78.81 - Bacteremia (2) Constipation by delayed colonic transit Current visit: No Status: Acute Category: Medical Code(s): K59.01 - Slow transit constipation - Assessment and plan all Dx Assessment and Plan for all problems:: Overall improving. No changes in plan. Continue to watch cultures. Consider transfer back to shelter tomorrow if blood cultures remain clear from this admission.
--- NOTE | 2019-07-13 09:02 | Discharge Summary ---
General - General Admission date:: 07/10/19 Discharge date: 07/13/19 HPI HPI: 88-year-old white male with significant history of dementia, prostatitis and recurrent urinary tract infections who recently was admitted to the personal care wing of a local transitional care facility. Yesterday morning he was brought to the emergency department after a fall, exam was unremarkable patient was found to have urinary tract infection, and treated with levofloxacin and discharged back to the personal longterm. He was doing well, but we were contacted yesterday evening with positive blood cultures. I contacted the personal longterm, and they reported that patient was prescribed levofloxacin orally from the emergency room but they were unsure if he was taking it as he is in a wing in which he does not have directly observed/healthcare personnel administered medication. Given his memory deficits and unreliability of finishing a course of antibiotics I brought him back to the hospital for direct admission for IV antibiotics and further evaluation of this bacteremia. He feels well this morning. His only complaint is not having a bowel movement for the past couple of days. Hospital Course Hospital Course: Patient was admitted, placed on dual coverage IV antibiotics for E. coli with levofloxacin and ceftriaxone. Tolerated this well, repeat blood cultures were unremarkable. Sensitivities from blood cultures and urine cultures from his ER visit revealed E. coli, pansensitive and he tolerated antibiotics well. Patient was able to urinate, move about the room on his own but with some ataxia issues and reached maximal medical improvement. Plan will be to transfer him back to his personal longterm: Plan will be as follows: He will need PT/OT either through home health or through the personal longterm services, and I am also prescribing ceftriaxone 1 g, daily, starting on 07/14/2019 through 6 doses, therefore ending on 07/20/2019. This will need to be given at the personal longterm by home health or the personal longterm agency or patient will need to be transported back to [facility] infusion department daily to finish up the ceftriaxone infusions. Patient is homebound given his ataxia, frequent fall risk and needs PT/OT/nursing evaluation for home safety issues. He will continue to have his DNR status, follow-up will be per my rounds at his personal longterm. Objective Vital signs: Temp Pulse Resp BP Pulse Ox 97.7 F 87 18 138/67 95 07/13/19 07:51 07/13/19 07:51 07/13/19 07:51 07/13/19 07:51 07/13/19 07:51 Narrative: Patient is pleasant, talkative, memory loss as previously noted but he is fairly functional in regards to eating, and his ADLs. Anterior lung p[place] are clear, heart rate regular. Abdomen soft and nontender. Other than memory neurologic exam is nonfocal. No edema clubbing or cyanosis. Pharynx clear, ENT exam clear. Results Labs on day of discharge: Preliminary micro results at discharge 07/11/19 06:00 Blood Culture - Preliminary Blood NO GROWTH AFTER 48 HOURS 07/11/19 06:00 Blood Culture - Preliminary Blood NO GROWTH AFTER 48 HOURS DS: Diagnosis - Discharge Diagnosis (1) Bacteremia Status: Acute (2) Constipation by delayed colonic transit Status: Acute Discharge Plan - Patient Discharge Instructions ACTIVITY: Continue current activity DIET: continue same diet Patient Instructions: DI for Escherichia Coli Infection, Escherichia coli Infection - Follow up Plan Follow up with: Daiana Vidal APRN [Nurse Practitioner] - Disposition: Home, Self-Intermediate Medications: Home Medications Medication Instructions Recorded Confirmed Type Famotidine 40 mg PO DAILY 10/13/17 07/11/19 History Donepezil HCl [Donepezil ODT 5mg] 5 mg PO HS 06/30/19 07/11/19 History Tamsulosin HCl 0.4 mg PO DAILY 06/30/19 07/11/19 History Hydrocortisone [Proctozone-Hc] 30 gm TP BID PRN 07/10/19 07/11/19 History Levothyroxine Sodium 50 mcg PO DAILY 07/10/19 07/11/19 History [Levothyroxine 50mcg (0.05mg) Tab] Pravastatin Sodium [Pravachol 40mg 40 mg PO HS 07/10/19 07/11/19 History Tablet] levoFLOXacin [Levaquin 500mg 500 mg PO DAILY 07/11/19 07/11/19 History tab] Ceftriaxone 1 gm [Rocephin 1gm ADV] 1 gm IV DAILY #6 [email or web address] 07/13/19 Rx Prescriptions/Medication Reconciliation: New Ceftriaxone 1 gm [Rocephin 1gm ADV] 1 gm IV DAILY #6 [email or web address] Continued Famotidine 40 mg PO DAILY Donepezil HCl [Donepezil ODT 5mg] 5 mg PO HS Tamsulosin HCl 0.4 mg PO DAILY Pravastatin Sodium [Pravachol 40mg Tablet] 40 mg PO HS Levothyroxine Sodium [Levothyroxine 50mcg (0.05mg) Tab] 50 mcg PO DAILY Hydrocortisone [Proctozone-Hc] 30 gm TP BID PRN PRN Reason: Itching Discontinued levoFLOXacin [Levaquin 500mg tab] 500 mg PO DAILY - Problem Reconciliation Problems Reviewed?: Yes
== END 2019-07-13 13:15 | disposition home or self-care (01) ==
LOC: 2ND
PROVIDERS: ADMIT Internal Medicine Adolescent Medicine; ATTEND Internal Medicine Adolescent Medicine
CPT/HCPCS: 36415; 70450; 71010; 71045; 72125; 72131; 72170; 80048; 80053; 81001; 83605; 85007; 85025; 87040; 87077; 87086; 87088; 87186; 87275; 87276; 90732; 96365; 99284; G0378; J1956